=== PATIENT | male | born 1955 | race Caucasian/White ===

== ENCOUNTER → 2023-07-25 08:30 | Outpatient (REF) | payer OTHER, SELFPAY | LOC: REG 08:30 | PROVIDERS: ATTENDING PHYSICIAN Specialist; FAMILY PHYSICIAN Family Medicine | DX: E29.1 Testicular hypofunction (principal) | CPT/HCPCS: 36415; 84403 ==

== ENCOUNTER → 2023-08-13 06:47 | Outpatient (REF) | payer OTHER, SELFPAY | LOC: MRI 06:47 | PROVIDERS: ATTENDING PHYSICIAN Specialist; FAMILY PHYSICIAN Family Medicine | DX: M54.16 Radiculopathy, lumbar region (principal) | CPT/HCPCS: 72148 ==

== ENCOUNTER → 2023-10-26 16:29 | Outpatient (REF) | payer OTHER, SELFPAY | LOC: RAD 16:29 | PROVIDERS: ATTENDING PHYSICIAN Family Medicine | DX: I82.890 Acute embolism and thrombosis of other specified veins (principal) | CPT/HCPCS: 93971 ==

== ENCOUNTER → 2023-11-19 07:13 | Outpatient (REF) | payer OTHER, SELFPAY ==
[2023-11-19 08:59] LABS: Hematocrit 41.9 % (39.0-52.0)
[2023-11-19 09:32] LABS: ALT (SGPT) 27 U/L (0-50); AST (SGOT) 43 U/L (17-59); Albumin 4.3 g/dl (3.5-5.0); Blood Urea Nitrogen 18 mg/dl (9-20); Carbon Dioxide 26 mmol/L (22-30); Glucose 90 mg/dl (70-99); Potassium 4.6 mmol/L (3.5-5.1); Total Bilirubin 0.7 mg/dl (0.2-1.3); Total Protein 6.5 g/dl (6.3-8.2); eGFR > 60.00
[2023-11-19 10:19] LABS: Calcium 9.5 mg/dl (8.4-10.2); Chloride 105 mmol/L (98-107); Sodium 140 mmol/L (135-145)
[2023-11-19 11:07] LABS: Alkaline Phosphatase 75 U/L (38-126)
== END ==
LOC: REG 07:13
PROVIDERS: ATTENDING PHYSICIAN Specialist; FAMILY PHYSICIAN Family Medicine
DX: Z12.5 Encounter for screening for malignant neoplasm of prostate (principal); E29.1 Testicular hypofunction
CPT/HCPCS: 36415; 80053; 84403; 85014

== ENCOUNTER 2023-12-31 19:31 | Emergency (ER) | payer OTHER, SELFPAY ==
[2023-12-31 19:39] VITALS: BP 161/88; BMI 29.6
[2023-12-31 19:52] LABS: % Basophils 0.3 % (0-2); % Eosinophils 0.5 % (0-6); % Immature Granulocytes 0.5 % (0-0.5); % Monocytes 11.4 % (1.7-9.3); % Neutrophils 75.3 % (42.2-75.2); Absolute Eosinophils 0.1 10^3/uL (0-0.7); Absolute Immature Granulocytes 0.1 10^3/uL (0-0.05); Absolute Lymphocytes 1.2 10^3/uL (1.2-3.4); Absolute Monocytes 1.1 10^3/uL (0.1-0.6); Absolute Neutrophils 7.4 10^3/uL (1.4-6.5); Hematocrit 42.7 % (39.0-52.0); Hemoglobin 14.6 g/dL (13.0-18.0); Mean Corp Hgb Conc. 34.2 g/dL (33.0-37.0); Mean Corpuscular Hgb 33.1 pg (27.0-31.0); Mean Corpuscular Volume 96.8 fL (80.0-94.0); Mean Platelet Volume 9.7 fL (7.4-10.4); Nucleated Red Blood Cells % 0 % (-); Platelet Count 185 10^3/uL (130-400); Red Blood Cell Count 4.41 10^6/uL (4.70-6.10); Red Cell Dist. Width 13.5 % (11.5-14.5); White Blood Cell Count 9.9 10^3/uL (4.8-10.8)
[2023-12-31 20:16] LABS: ALT (SGPT) 33 U/L (0-50); AST (SGOT) 28 U/L (17-59); Albumin 3.8 g/dl (3.5-5.0); Alkaline Phosphatase 64 U/L (38-126); Blood Urea Nitrogen 12 mg/dl (9-20); Calcium 9.1 mg/dl (8.4-10.2); Carbon Dioxide 30 mmol/L (22-30); Chloride 105 mmol/L (98-107); Estimated Creatinine Clearance 91 ml/min; Glucose 100 mg/dl (70-99); Sodium 139 mmol/L (135-145); Total Bilirubin 0.9 mg/dl (0.2-1.3); Total Protein 5.9 g/dl (6.3-8.2); eGFR > 60.00
[2023-12-31 20:32] LABS: Troponin I < 0.012 ng/ml
[2023-12-31 21:13] VITALS: BMI 28.3
--- NOTE | 2023-12-31 21:18 | EDRN ---
Pt ate dinner night and developed pain in LLQ abd. Pt ate pork chops and red beets. Pt took pepto and dariusz seltzer into Tuesday and pain 'calmed down'. Last night, pt had pain upper abdomen 'like a strike' that woke him up. Pt ate
chicken noodle soup last night as well as tonight. Pain currently in LLQ of abdomen that comes and goes. Pt took dariusz seltzer today for pain and says it did not help. No n/v/d/constipation, fever/chills/cough, urinary symptoms. dizziness.
Pt adds 'My heart brings me in, it hurts and I'm short of breath.' Pt says walking 20 ft to his garden makes him take a deep breath. Pt had afib 7 years. This has been going on for past couple days. Pt has 'piercing' in L upper chest and says on
'it was really moving and went away.' This discomfort does not radiate. Pt does not know if he has had palpitations but says last time he had something like this was 7 years ago when he was in afib. Pt says Dr Juarez cardioverted him at
that time and pt started with cpap.
[2023-12-31 21:35] VITALS: BP 113/65
[2023-12-31 21:41] LABS: Lipase 176 U/L (23-300)
[2023-12-31 22:00] VITALS: BP 132/72
[2023-12-31 22:47] LABS: Urine Albumin Negative (Neg - Trace); Urine Bilirubin Negative (Negative); Urine Character Clear (Clear); Urine Color Yellow; Urine Glucose Negative (Negative); Urine Ketone Negative (Negative); Urine Leukocyte Negative (Negative); Urine Nitrite Negative (Negative); Urine Occult Blood Negative (Negative); Urine Urobilinogen Negative (Neg - 1+)
[2023-12-31 23:00] VITALS: BP 129/76
--- NOTE | 2023-12-31 23:33 | ED.GENMED ---
History of Present Illness
General
Chief Complaint: Abdominal Pain
Source: patient and previous hospital records
Exam Limitations: none
Time Seen by Provider: 12/31/23 21:58
Nursing documentation reviewed up to this point in time: agreed with
History of Present Illness
History of Present Illness:
This is a 68-year-old gentleman who has history of diverticulosis, history of PAF who complains of 2-day history of primarily left lower quadrant abdominal pain accompanied with constipation. He did take a laxative tablets night, 2 days
ago and then again last night and passed hard stool yesterday and again hard stool today. Despite moving his bowels he continues with some left lower quadrant abdominal pain, persistent over the past 2 days. He has been limiting his diet to clear
liquids, soups over the past 2 days. He has not noticed a fever but does admit to mild generalized aches. He has had no nausea nor vomiting. He has history of chronic mild urinary frequency that is stable and unchanged. No dysuria nor urgency
nor hematuria.
He is also concern for potential atrial fibrillation as he has noticed some brief palpitations over the past week or 2 as well as some intermittent chest pain that seems worse with deep breath along with mild dyspnea on exertion, ongoing over the
past few weeks. He states the symptoms seem similar to his symptoms with prior episode of atrial fibrillation. He denies dizziness nor lightheadedness, no leg pain or swelling. No recent travel.
He follows with Dr. Juarez. He admits that he has not attempted to call his snuff drier.
Past History
Past History
ED Past Medical History: Arrthythmia (Paroxysmal atrial fibrillation), Hypercholesterolemia and Other (Gallstones, diverticulosis, umbilical hernia)
ED Past Surgical History: Orthopedic
Social History
Tobacco: Non-smoker
Alcohol: None
Drug: None
Personal:
Living: with family
Employment: Retired
Family History
Family History: Diabetes
Phy Exam
Physical Exam
Physical Exam:
GENERAL: 68-year-old gentleman appears his stated age, awake and alert, pleasant, appears in no acute distress.
EYE: anicteric
NECK: Supple, nontender, no meningismus, no significant adenopathy.
ENT: oral mucosa is moist. No rhinorrhea.
CARDIAC: Regular rate and rhythm. no murmur.
LUNGS: Clear breath sounds bilaterally, no acute respiratory distress, no wheezes/rales/rhonchi
ABDOMEN: Rotund, soft, nondistended, mild tenderness left lower quadrant and suprapubic without rebound or guarding or rigidity. No palpable masses. no cvat. normoactive BS.
NEUROLOGICAL: Alert and oriented x3, no focal neuro deficits. Gait is [place]ano and steady.
SKIN: Warm and dry, normal color, skin intact. No rash.
MUSCULOSKELETAL: No C/C/E. peripheral pulses are full and equal b/l. No palpable tenderness.
PSYCH: Normal and appropriate interaction.
Course
Orders/Labs/Results
Orders:
Orders
12/31/23 19:41
Electrocardiogram (*1) Urgent
Reason for Study: Chest Pain
EKG- Treatment ONCE
12/31/23 19:47
Complete Blood Count/With Diff Urgent
Comprehensive Metabolic Panel Urgent
Lipase Urgent
Comment: ADDON
NT-proBNP Urgent
Comment: ADD ON
Troponin I Urgent
12/31/23 21:11
Add On- LAB Urgent
Tests Added?: lipase
12/31/23 22:28
Add On- LAB Urgent
Tests Added?: BNP
12/31/23 22:37
Urinalysis Reflex To Culture Urgent
Date Specimen was Collected: 12/31/23
Time Specimen was Collected: 22:33
01/01/24 00:02
CT Abd/pelvis W Iv Cont Urgent
Reason For Exam: 2 day hx LLQ abd pain-constant
01/01/24 01:21
Ketorolac [Toradol] 15 mg IV NOW STA
Abnormal Lab Results
12/31/23
19:47
RBC 4.41 L 10^6/uL
(4.70-6.10)
MCV 96.8 H fL
(80.0-94.0)
MCH 33.1 H pg
(27.0-31.0)
Abs Immat Gran (auto) 0.1 H 10^3/uL
(0-0.05)
Absolute Neuts (auto) 7.4 H 10^3/uL
(1.4-6.5)
Absolute Monos (auto) 1.1 H 10^3/uL
(0.1-0.6)
Neutrophils % 75.3 H %
(42.2-75.2)
Lymphocytes % 12.0 L %
(20.5-51.1)
Monocytes % 11.4 H %
(1.7-9.3)
Glucose 100 H mg/dl
(70-99)
Total Protein 5.9 L g/dl
(6.3-8.2)
12/31/23 19:47
12/31/23 19:47
Vital Signs
Initial and Last Documented VS:
Initial Vital Signs
Temp Pulse Resp BP Pulse Ox
98.5 F 92 16 161/88 99
12/31/23 19:39 12/31/23 19:39 12/31/23 19:39 12/31/23 19:39 12/31/23 19:39
Last Documented Vital Signs
Temp Pulse Resp BP Pulse Ox
98.5 F 80 18 132/72 93
12/31/23 19:39 01/01/24 00:00 01/01/24 00:00 01/01/24 00:00 01/01/24 00:00
MDM/Problems Addressed
Differential Diagnosis Includes:
Patient presents with 2-day history of left lower quadrant pain. Known history of diverticulosis. Concern for diverticulitis, other consideration is constipation, UTI, colitis.
Patient concern for possible atrial fibrillation with ongoing fatigue complaints of chest discomfort, mild dyspnea on exertion, 1 episode of brief palpitations but denies sustained palpitations or sustained symptoms.
He has no prior history of CHF/cardiomyopathy, no history of CAD. Echocardiogram July 2022 showing EF of 55%, mild to moderate mitral regurgitation. Unremarkable stress echo 2018.
EKG shows normal sinus rhythm, no acute ST-T wave abnormalities. Monitor shows similar normal sinus rhythm.
Labs are reassuring with normal white blood cell count.
Troponin is negative.
Will check urinalysis, BNP and plan for CT abdomen pelvis with IV contrast.
Chronic conditions affecting care: HTN, Arrhythmia and Other (Diverticulosis)
*Radiology
Radiology exam reviewed: radiology read reviewed
*Pulse Oximetry
Patient hypoxic: no
*EKG
Interpreted by ED Provider?: Yes
Interpretation: normal
Comparison EKG: no changes (Unchanged from previous July 2022)
Rate: normal
Rhythm: sinus
[place]: normal axis
Interval: normal interval
QRS Pattern: normal QRS
Ischemia: no ischemia
*Parts Cataloguer Interpretation
Rate: normal
Interpretation: normal
Rhythm: sinus
*Critical Care Note
Total Time (30-74mins, 75-104mins- exclusive of procedures): Not Applicable
Update Note
Update Note:
01/01/2024 0125 AM
CAT scan shows several nonspecific findings. Concern for mild stranding along the pancreatic tail concerning for mild pancreatitis however lipase is normal. Patient has no upper abdominal pain. There is incidental gallstones without evidence of
cholecystitis. Diverticulosis without diverticulitis. No evidence of colitis nor obstruction. No hydronephrosis or obstructing stone.
Patient remains in normal sinus rhythm.
Troponin is negative. BNP is normal.
As he has been passing hard stools the past 2 days after taking a laxative I suspect his left lower quadrant pain is an element of constipation in nature.
Recommend he initiate daily MiraLAX as well as fiber supplement.
Prompt follow-up with PCP versus his restorative aide, Dr. Burton.
Nonspecific chest discomfort ongoing for several weeks with unremarkable EKG, troponin. Recommend he follow-up with his snuff drier, Dr. Juarez.
ED Attending Note
-
Portions of this chart may have been created with voice recognition software.� Occasional wrong word or��sound alike� substitutions may have occurred due to the inherent limitations of voice recognition software.
Discharge Plan
Departure
Patient Disposition: Home (Routine Discharge)
Date of Disposition: 01/01/24
Time of Disposition: 01:23
Patient with high blood pressure during this ER visit?: No
Condition: Good
Discharge Problem:
Abdominal pain, acute, left lower quadrant, Acute constipation, Nonspecific chest pain
Instructions: Constipation, Adult (DC), Chest Pain DCA Follow Up
Prescriptions:
No Action
zolpidem 10 MG tablet
10 mg PO HSPRN PRN (Reason: sleep)
metoprolol succinate 25 MG tablet extended release 24 hr
25 mg PO HS
testosterone [AndroGel] 1.25 GM gel in packet
1.62 gm TD DAILY
rosuvastatin 10 mg Tablet
10 mg PO DAILY
aspirin 81 mg Capsule
81 mg PO DAILY
[place] 3
2 gummy PO DAILY
Referrals:
Francisco Powers MD [Family Provider] - Call in 1-3 days for appt
Interventions
Interventions:
*Risk Screen - Suicide Last Done: 12/31/23 19:39
*General Assessment Last Done: 12/31/23 21:13
*Neglect/Abuse Screening Last Done: 12/31/23 19:39
ED- Fall Risk Assessment Last Done: 12/31/23 21:31
*ED COVID-19 Vaccine History Last Done: 12/31/23 21:13
YV-Mgbehf-Fazxmuvkdk Assessment Last Done: 12/31/23 21:31
Discharge Date and Time
Print Language: SLOVAK
[2023-12-31 23:51] LABS: NT-proBNP 198 pg/ml
[2024-01-01] VITALS: BP 132/72
[2024-01-01 01:35] VITALS: BP 121/92
[2024-01-01] MEDS: TORADOL 15 MG IV (01:35)
== END 2024-01-01 01:43 | disposition home or self-care (01) ==
LOC: EMR 19:31
PROVIDERS: Student in an Organized Health Care Education/Training Program; EMERGENCY PHYSICIAN Emergency Medicine; FAMILY PHYSICIAN Family Medicine
DX: R10.32 Left lower quadrant pain (principal); K59.09 Other constipation; R07.89 Other chest pain; I48.0 Paroxysmal atrial fibrillation
CPT/HCPCS: 99285; 96374; 74177; 80053; 81003; 83690; 83880; 84484; 85025; 93005; Q9967

== ENCOUNTER → 2024-01-23 07:15 | Outpatient (REF) | payer OTHER, SELFPAY | LOC: RCS 07:15 | PROVIDERS: ATTENDING PHYSICIAN Internal Medicine Cardiovascular Disease; FAMILY PHYSICIAN Family Medicine | DX: R06.02 Shortness of breath (principal) | CPT/HCPCS: 93306 ==

== ENCOUNTER → 2024-01-25 08:13 | Outpatient (REF) | payer OTHER, SELFPAY | LOC: DHCBC/DCA 08:13 | PROVIDERS: ATTENDING PHYSICIAN Internal Medicine Cardiovascular Disease; FAMILY PHYSICIAN Family Medicine | DX: R07.89 Other chest pain (principal); R06.02 Shortness of breath | CPT/HCPCS: 78452; 93017; A9500 ==

== ENCOUNTER → 2024-02-21 07:45 | Outpatient (REF) | payer OTHER, SELFPAY ==
[2024-02-21 10:05] LABS: Hematocrit 44.7 % (39.0-52.0)
[2024-02-21 10:26] LABS: ALT (SGPT) 32 U/L (0-50); AST (SGOT) 39 U/L (17-59); Albumin 4.5 g/dl (3.5-5.0); Alkaline Phosphatase 71 U/L (38-126); Blood Urea Nitrogen 12 mg/dl (9-20); Calcium 9.6 mg/dl (8.4-10.2); Carbon Dioxide 30 mmol/L (22-30); Chloride 104 mmol/L (98-107); Glucose 91 mg/dl (70-99); Potassium 4.6 mmol/L (3.5-5.1); Sodium 142 mmol/L (135-145); Total Bilirubin 0.8 mg/dl (0.2-1.3); Total Protein 6.6 g/dl (6.3-8.2); eGFR > 60.00
== END ==
LOC: REG 07:45
PROVIDERS: ATTENDING PHYSICIAN Specialist; FAMILY PHYSICIAN Family Medicine
DX: Z12.5 Encounter for screening for malignant neoplasm of prostate (principal)
CPT/HCPCS: 36415; 80053; 84403; 85014

== ENCOUNTER → 2024-04-23 07:50 | Outpatient (REF) | payer OTHER, SELFPAY ==
[2024-04-23 10:02] LABS: Hematocrit 46.5 % (39.0-52.0)
[2024-04-23 10:52] LABS: ALT (SGPT) 35 U/L (0-50); AST (SGOT) 36 U/L (17-59); Albumin 4.5 g/dl (3.5-5.0); Alkaline Phosphatase 55 U/L (38-126); Blood Urea Nitrogen 15 mg/dl (9-20); Calcium 9.5 mg/dl (8.4-10.2); Carbon Dioxide 29 mmol/L (22-30); Chloride 104 mmol/L (98-107); Glucose 86 mg/dl (70-99); HDL Cholesterol 61 mg/dl; LDL Cholesterol, Calculated 106 mg/dl; Potassium 4.8 mmol/L (3.5-5.1); Sodium 143 mmol/L (135-145); Total Bilirubin 0.7 mg/dl (0.2-1.3); Total Cholesterol 195 mg/dl (50-199); Total Protein 6.7 g/dl (6.3-8.2); Triglyceride 143 mg/dl (10-149); Very Low Density Lipoprotein 28 mg/dl (0-30); eGFR > 60.00
[2024-04-23 11:01] LABS: IgA 97 mg/dl (70-400)
[2024-04-24 19:21] LABS: % Free Testosterone 1.5 % (1.6-2.9); Free Testosterone 12 pg/mL (47-244); Sex Hormone Binding Globulin 40 nmol/L (19-76); Total Testosterone 78 ng/dL (300-720)
[2024-04-25 15:10] LABS: tTG IgA Antibody 3.5 EU/ml (0-19); tTG IgG Antibody 11.6 EU/ml (0-19)
[2024-04-25 16:56] LABS: Endomysial IgA Antibody Titer <1:10 (<1:10)
== END ==
LOC: REG 07:50
PROVIDERS: ATTENDING PHYSICIAN Internal Medicine Cardiovascular Disease; FAMILY PHYSICIAN Family Medicine; OTHER PHYSICIAN Internal Medicine; REFERRING PHYSICIAN Specialist
DX: E78.00 Pure hypercholesterolemia, unspecified (principal); Z12.5 Encounter for screening for malignant neoplasm of prostate; E29.1 Testicular hypofunction; R19.5 Other fecal abnormalities; Z86.0101 Personal history of adenomatous and serrated colon polyps
CPT/HCPCS: 36415; 80053; 80061; 82784; 83516; 84270; 84402; 84403; 85014; 86231

== ENCOUNTER → 2024-04-24 08:37 | Outpatient (REF) | payer OTHER, SELFPAY | LOC: REG 08:37 | PROVIDERS: ATTENDING PHYSICIAN Internal Medicine; FAMILY PHYSICIAN Family Medicine | DX: R19.5 Other fecal abnormalities (principal) | CPT/HCPCS: 83993 ==

== ENCOUNTER → 2024-05-10 14:20 | Outpatient (REF) | payer OTHER, SELFPAY | LOC: PAVMRI 14:20 | PROVIDERS: ATTENDING PHYSICIAN Internal Medicine; FAMILY PHYSICIAN Family Medicine | DX: Q45.3 Other congenital malformations of pancreas and pancreatic duct (principal); Z87.19 Personal history of other diseases of the digestive system | CPT/HCPCS: 74183; A9575 ==

== ENCOUNTER 2024-05-21 06:23 | Day surgery (SDC) | payer OTHER, SELFPAY ==
[2024-04-23 08:40] VITALS: BMI 29.0
[2024-04-23 08:58] LABS: Hematocrit 46.7 % (39.0-52.0); Hemoglobin 15.6 g/dL (13.0-18.0); Mean Corp Hgb Conc. 33.4 g/dL (33.0-37.0); Mean Corpuscular Hgb 32.7 pg (27.0-31.0); Mean Corpuscular Volume 97.9 fL (80.0-94.0); Mean Platelet Volume 9.5 fL (7.4-10.4); Platelet Count 197 10^3/uL (130-400); Red Blood Cell Count 4.77 10^6/uL (4.70-6.10); Red Cell Dist. Width 13.6 % (11.5-14.5)
[2024-04-23 09:27] LABS: ALT (SGPT) 34 U/L (0-50); AST (SGOT) 35 U/L (17-59); Albumin 4.4 g/dl (3.5-5.0); Alkaline Phosphatase 55 U/L (38-126); Blood Urea Nitrogen 15 mg/dl (9-20); Calcium 9.6 mg/dl (8.4-10.2); Carbon Dioxide 30 mmol/L (22-30); Chloride 102 mmol/L (98-107); Estimated Creatinine Clearance 81 ml/min; Glucose 85 mg/dl (70-99); Potassium 4.5 mmol/L (3.5-5.1); Sodium 142 mmol/L (135-145); Total Bilirubin 0.7 mg/dl (0.2-1.3); Total Protein 6.4 g/dl (6.3-8.2); eGFR > 60.00
[2024-04-23 09:31] LABS: Glycohemoglobin (HgbA1c) 5.4 % (4.0-5.6)
--- NOTE | 2024-05-15 12:05 | VNURNOTE ---
Chart reviewed. per Pre-op note Jameson F- patient to stay overnight and start outpt PT Weds or Tue of surgical week. No [facility] referral placed.
[2024-05-16 08:58] VITALS: BMI 29.0
[2024-05-21] VITALS (11 sets, daily range): BP systolic 104–161; BP diastolic 65–85; PULSE 65; O2SAT 95; BMI 29.0
[2024-05-21] MEDS: CELEBREX 200 MG PO (08:06)
[2024-05-21] MEDS: TYLENOL 650 MG PO ×4 (08:06→21:00)
--- NOTE | 2024-05-21 11:27 | W.DS.TRANS ---
DC Summary - Internal Controls Analyst
-
Discharge Instructions:
Discharge Diagnosis/Procedures R TKA Dr. Cary 05/21/24
Diet As tolerated
Activity With Walker
Driving Restrictions No driving
Bathing Restrictions OK to Shower
Instructions:
Stand-Alone Forms: SDS Total Hip and Knee D/C
Changes to Home Medications: Yes
Discharge Medications:
DC Medications w/original date entered in [employer]
zolpidem 10 mg tablet 10 mg PO HSPRN PRN sleep 05/02/17
metoprolol succinate 25 mg tablet,extended release 24 hr 25 mg PO HS 05/02/18
testosterone 1.62 % (20.25 mg/1.25 gram) transdermal gel packet (AndroGel) 1.62 gm TD DAILY 05/02/18
rosuvastatin 10 mg tablet 10 mg PO DAILY 12/31/22
[place] 3 2 gummy PO DAILY 12/31/23
mupirocin 2 % topical ointment 1 applic topical BID 05/16/24
acetaminophen 325 mg tablet (Tylenol) 650 mg (2 x 325 mg) PO QID #1 tab 05/21/24
aspirin 325 mg tablet 325 mg PO DAILY blood clot prevention #1 tab 05/21/24
celecoxib 100 mg capsule 100 mg PO BID Anti-inflammatory #14 caps 05/21/24
dexamethasone 4 mg tablet 4 mg PO BID inflammation #6 tabs 05/21/24
docusate sodium 100 mg capsule (Colace) 100 mg PO BID stool softner #1 cap 05/21/24
magnesium hydroxide 400 mg/5 mL oral suspension (Milk of Magnesia) 30 ml PO HS PRN Constipation #1 mL 05/21/24
ondansetron 4 mg disintegrating tablet 4 mg PO Q6H PRN n/v #20 tabs 05/21/24
oxycodone 5 mg tablet 5 mg PO Q6H PRN 1 tab moderate pain, 2 tabs severe pain #30 tabs 05/21/24
sennosides 8.6 mg tablet (Senokot) 17.2 mg (2 x 8.6 mg) PO BID laxative #2 tabs 05/21/24
Home Medication Changes
aspirin 325 mg tablet 325 mg PO DAILY blood clot prevention #1 tab 05/21/24
celecoxib 100 mg capsule 100 mg PO BID Anti-inflammatory #14 caps 05/21/24
dexamethasone 4 mg tablet 4 mg PO BID inflammation #6 tabs 05/21/24
docusate sodium 100 mg capsule (Colace) 100 mg PO BID stool softner #1 cap 05/21/24
magnesium hydroxide 400 mg/5 mL oral suspension (Milk of Magnesia) 30 ml PO HS PRN Constipation #1 mL 05/21/24
ondansetron 4 mg disintegrating tablet 4 mg PO Q6H PRN n/v #20 tabs 05/21/24
oxycodone 5 mg tablet 5 mg PO Q6H PRN 1 tab moderate pain, 2 tabs severe pain #30 tabs 05/21/24
sennosides 8.6 mg tablet (Senokot) 17.2 mg (2 x 8.6 mg) PO BID laxative #2 tabs 05/21/24
Pending Results: No
--- NOTE | 2024-05-21 11:37 | W.PN.UPDATE ---
Update Note
Progress Note Update
R JUAN DANIEL Cary 05/21/24
PAF-maintained on Metoprolol w/ no oral anticoagulation--tele
HFpEF--decrease IVF rate
MARGE-Cpap
BPH-add scheduled Flomax and prn if indicated
[2024-05-21] MEDS: ROXICODONE 5 MG PO (11:45)
[2024-05-21] MEDS: FLOMAX 0.4 MG PO (11:45)
[2024-05-21] MEDS: NORMOSOL-R/PLASMALYTE-A 1000 IV (12:15)
--- NOTE | 2024-05-21 12:15 | PTCARENOTE ---
Received patient from PACU at 1215. Patient AAOx3, no c/o pain, call leonard in reach. Spouse at bedside.
[2024-05-21] MEDS: CRESTOR 10 MG PO (13:19)
[2024-05-21] MEDS: ULTRAM 50 MG PO ×3 (13:19→21:05)
--- NOTE | 2024-05-21 15:33 | PTCARENOTE ---
Patient ambulating to bathroom with walker and supervision. Patient voided multiple times in bathroom without difficulty. Patient has no c/o pain. Tolerating regular diet, spouse at bedside.Ice to right knee, call leonard in reach.
[2024-05-21] MEDS: ASPIRIN 325 MG PO (17:44)
[2024-05-21] MEDS: ANCEF 5 IV (17:45)
[2024-05-21] MEDS: BACTROBAN 2% OINTMENT 1 APPLIC NASAL (20:40)
[2024-05-21] MEDS: DECADRON 6 MG IV (21:00)
[2024-05-21] MEDS: TORADOL 15 MG IV (21:00)
[2024-05-21] MEDS: SENOKOT 17.2 MG PO (21:00)
[2024-05-21] MEDS: COLACE 100 MG PO (21:05)
[2024-05-21] MEDS: TOPROL XL 25 MG PO (21:05)
[2024-05-21] MEDS: NEURONTIN 300 MG PO (21:05)
[2024-05-22] MEDS: TYLENOL 650 MG PO ×3 (00:59→12:30)
[2024-05-22] MEDS: ANCEF 5 IV (01:00)
[2024-05-22 03:34] VITALS: BP 128/84
[2024-05-22] MEDS: TYLENOL PO (05:00)
[2024-05-22 08:07] VITALS: BP 138/80
[2024-05-22] MEDS: SENOKOT 17.2 MG PO (08:25)
[2024-05-22] MEDS: CELEBREX 200 MG PO (08:25)
[2024-05-22] MEDS: CRESTOR 10 MG PO (08:25)
[2024-05-22] MEDS: ASPIRIN 325 MG PO (08:25)
[2024-05-22] MEDS: ULTRAM 50 MG PO ×2 (08:25→12:30)
[2024-05-22] MEDS: TORADOL 15 MG IV (08:26)
[2024-05-22] MEDS: DECADRON 6 MG IV (08:26)
[2024-05-22] MEDS: BACTROBAN 2% OINTMENT 1 APPLIC NASAL (08:26)
[2024-05-22] MEDS: COLACE 100 MG PO (08:26)
--- NOTE | 2024-05-22 09:17 | W.PN.ORTHO ---
Today's Communication / Plan
-
d/c
Assessment
.
Distal Motor Intact: Yes
Dressing:
Clean, dry and intact.
Assessment:
PAF-maintained on Metoprolol w/ no oral anticoagulation--stable on tele
HFpEF--decrease IVF rate
MARGE-Cpap-O2 sats stable
BPH-add scheduled Flomax and prn if indicated-voiding well
Plan
.
Surgery / Date: R JUAN DANIEL Cary 05/21/24
DVT Prophylaxis: Aspirin
Activity:
Out of bed.
PT/OT
Discharge Plan: Home w/ Outpatient PT
Subjective
.
.:
Patient resting comfortably.
Vital Signs and Labs
.
Vital Signs and Labs:
Lab Results
04/23/24 07:27
04/23/24 07:27
Temp Pulse Resp BP Pulse Ox
97.8 F 80 17 138/80 95
05/22/24 08:07 05/22/24 08:07 05/22/24 08:07 05/22/24 08:07 05/22/24 08:07
Non-invasive Hgb result: 14.8
Physical Exam
-
HEENT: No pallor, cyanosis, or jaundice. Throat clear.
NECK: Supple. No JVD.
RESPIRATORY: Lungs clear to auscultation.
CVS: S1, S2 normal. RRR.� No murmur, rub or gallop.
ABDOMEN: Soft, non-tender. No distension. BS+/normal.
EXTREMITIES: strength equal, no calf pain with palpation
AUCTIONEER TOBACCO: AOx3. No focal deficits. administrative officer grossly intact
[2024-05-22 09:20] VITALS: BP 130/76; PULSE 82
--- NOTE | 2024-05-22 10:31 | CM ---
Met with pt at bedside
Pt reports he lives with his in a 2 story home; 2 steps to enter, FF set-up
Independent, retired, active, drives
DME - CPAP, rolling walker, single point cane, raised toilet seat, toilet rails, shower chair
SNF - denies past hx
HH - [facility] in past
Has ride home at discharge
PCP - Bernard Lozoya
Pharm - [facility]
Plan is for outpatient PT. Has appointment at [facility]. Has Rx. to transport
Plan - home with outpatient PT
[2024-05-22 11:00] VITALS: BP 130/73
[2024-05-22 11:01] VITALS: PULSE 77; O2SAT 99
[2024-05-22] MEDS: PREVNAR 20 0.5 ML IM (12:18)
== END 2024-05-22 13:54 | disposition home or self-care (01) ==
LOC: SDS 06:23
PROVIDERS: ATTENDING PHYSICIAN Specialist; FAMILY PHYSICIAN Family Medicine; REFERRING PHYSICIAN Internal Medicine Cardiovascular Disease
DX: M17.11 Unilateral primary osteoarthritis, right knee (principal); E66.9 Obesity, unspecified; Z68.30 Body mass index [BMI] 30.0-30.9, adult; Z96.653 Presence of artificial knee joint, bilateral
CPT/HCPCS: 27447; 36415; 73560; 80053; 83036; 85027; 87070; 97116; 97161; 97166; C1713; C1776

== ENCOUNTER → 2024-07-17 10:42 | Outpatient (REF) | payer OTHER, SELFPAY ==
[2024-07-19 15:50] LABS: Calprotectin, Fecal 146 ug/g (<=49)
== END ==
LOC: REG 10:42
PROVIDERS: ATTENDING PHYSICIAN Physician Assistant; FAMILY PHYSICIAN Family Medicine
DX: R19.5 Other fecal abnormalities (principal)
CPT/HCPCS: 83993

== ENCOUNTER 2024-08-02 16:00 | Emergency (ER) | payer OTHER, SELFPAY ==
[2024-08-02 16:09] VITALS: BP 137/62
[2024-08-02 16:28] LABS: % Basophils 0.3 % (0-2); % Eosinophils 1.5 % (0-6); % Immature Granulocytes 0.2 % (0-0.5); % Lymphocytes 22.9 % (20.5-51.1); % Monocytes 8.5 % (1.7-9.3); % Neutrophils 66.6 % (42.2-75.2); Absolute Eosinophils 0.1 10^3/uL (0-0.7); Absolute Lymphocytes 1.3 10^3/uL (1.2-3.4); Absolute Monocytes 0.5 10^3/uL (0.1-0.6); Absolute Neutrophils 3.9 10^3/uL (1.4-6.5); Hematocrit 44.9 % (39.0-52.0); Hemoglobin 14.7 g/dL (13.0-18.0); Mean Corp Hgb Conc. 32.7 g/dL (33.0-37.0); Mean Corpuscular Hgb 31.7 pg (27.0-31.0); Mean Platelet Volume 9.9 fL (7.4-10.4); Nucleated Red Blood Cells % 0 % (-); Platelet Count 227 10^3/uL (130-400); Red Blood Cell Count 4.63 10^6/uL (4.70-6.10); Red Cell Dist. Width 12.4 % (11.5-14.5); White Blood Cell Count 5.9 10^3/uL (4.8-10.8)
[2024-08-02 16:39] LABS: INR 1.02; PT 13.9 Sec (11.4-14.6)
[2024-08-02 16:40] LABS: APTT 26.4 Sec (23.4-35.0)
[2024-08-02 16:51] LABS: ALT (SGPT) 37 U/L (0-50); AST (SGOT) 78 U/L (17-59); Albumin 4.5 g/dl (3.5-5.0); Alkaline Phosphatase 65 U/L (38-126); Blood Urea Nitrogen 15 mg/dl (9-20); Calcium 9.5 mg/dl (8.4-10.2); Carbon Dioxide 28 mmol/L (22-30); Chloride 101 mmol/L (98-107); Glucose 130 mg/dl (70-99); Potassium 4.3 mmol/L (3.5-5.1); Sodium 136 mmol/L (135-145); Total Bilirubin 0.7 mg/dl (0.2-1.3); Total Protein 6.5 g/dl (6.3-8.2); eGFR > 60.00
[2024-08-02 16:55] LABS: Troponin I < 0.012 ng/ml
[2024-08-02 17:07] VITALS: BP 135/74
--- NOTE | 2024-08-02 17:24 | ED.GENMED ---
History of Present Illness
General
Chief Complaint: Chest Pain
Source: patient
Exam Limitations: none
Time Seen by Provider: 08/02/24 17:09
Nursing documentation reviewed up to this point in time: agreed with
History of Present Illness
History of Present Illness:
68-year-old male, hypertension hyperlipidemia about 2 hours ago after eating some cantaloupe and nuts developed sharp upper abdominal pain no mild nausea, did not radiate to the jaw or arm, similar episode few years ago after eating hot peppers,
does not drink or smoke no history of CAD, he took 2 Tums called 911 by the time paramedics got there is feeling better,
Past History
Past History
ED Past Medical History: Arrthythmia (Paroxysmal atrial fibrillation), GERD, Hypercholesterolemia and Other (Gallstones, diverticulosis, umbilical hernia)
ED Past Surgical History: Orthopedic
Social History
Tobacco: Non-smoker
Alcohol: None
Drug: None
Personal:
Living: with family
Employment: Retired
Family History
Family History: Diabetes
Review of Systems
Review of Systems
All Other Systems: Not applicable
Constitutional: Denies fever
EENT: Reports no symptoms
Respiratory: Reports no symptoms; Denies cough
Cardiac: Reports chest pain
ABD/GI: Reports abdominal pain and nausea
: Reports no symptoms
Musculoskeletal: Reports no symptoms
Skin: Reports no symptoms
Endocrine: Reports no symptoms
Hematologic/Lymphatic: Reports no symptoms
Psychiatric: Reports no symptoms
Phy Exam
Physical Exam
Physical Exam:
Physical Exam
General: no apparent distress, not acutely ill
Neck: No jaundice
Heart: s1/s2 regular rate and rhythm, no murmur. equal radial pulses.
Lungs: no acute respiratory distress. clear bilaterally
Abdomen: not tender.
Neuro: alert and oriented. no focal neurological deficits
Skin: no rash
Psychiatric: well kept. interactive and cooperative
Extremities: no edema. no calf tenderness.
Scores
Heart Score for Chest Pain Patients
STEMI patient?: No
History: Slightly or Non-Suspicious
ECG: Normal
Age: >/= 65 years
Risk Factors: 1 or 2 Risk Factors
Troponin: </= Normal Limit
Heart Score for Chest Pain Patients: 3
Heart Score Risk: 2.5% MACE over next 6 weeks
Course
Orders/Labs/Results
Orders:
Orders
08/02/24 16:02
Electrocardiogram (*1) Urgent
Reason for Study: Chest Pain
EKG- Treatment ONCE
08/02/24 16:17
Complete Blood Count/With Diff Urgent
Comprehensive Metabolic Panel Urgent
Lipase Urgent
PT/INR [Prothrombin Time] Urgent
PTT Urgent
Troponin I Urgent
08/02/24 17:23
Pantoprazole [Protonix IV] 40 mg IV NOW STA
08/02/24 17:24
Add On- LAB Urgent
Tests Added?: lipase
08/02/24 17:44
Troponin I Urgent
Abnormal Lab Results
08/02/24
16:17
RBC 4.63 L 10^6/uL
(4.70-6.10)
MCV 97.0 H fL
(80.0-94.0)
MCH 31.7 H pg
(27.0-31.0)
MCHC 32.7 L g/dL
(33.0-37.0)
Glucose 130 H mg/dl
(70-99)
AST 78 H U/L
(17-59)
08/02/24 16:17
08/02/24 16:17
Vital Signs
Initial and Last Documented VS:
Initial Vital Signs
Temp Pulse Resp BP Pulse Ox
97.7 F 72 20 137/62 97
08/02/24 16:09 08/02/24 16:09 08/02/24 16:09 08/02/24 16:09 08/02/24 16:09
Last Documented Vital Signs
Temp Pulse Resp BP Pulse Ox
97.7 F 63 19 135/74 97
08/02/24 16:09 08/02/24 17:45 08/02/24 17:45 08/02/24 17:07 08/02/24 17:45
MDM/Problems Addressed
Differential Diagnosis Includes:
Reflux pancreatitis biliary colic ACS, Doubt dissection or PE
MDM/Problems Addressed:
Abdominal chest pain
Chronic conditions affecting care: HTN
Acute Exacerbation and/or Progression of Chronic Illness: HTN
*Pulse Oximetry
Patient hypoxic: no
*EKG
Interpreted by ED Provider?: Yes
Interpretation: normal
Comparison EKG: no comparison EKG present
Heart Rate: 78
Rate: normal
Rhythm: sinus
Ischemia: non-specific ST changes
*Machine Crater Interpretation
Rate: normal
Interpretation: normal
Heart Rate: 78
Rhythm: sinus
*Critical Care Note
Total Time (30-74mins, 75-104mins- exclusive of procedures): Not Applicable
Update Note
Update Note:
Update patient feeling well, troponin undetectable x 2 has seen cardiology previously has had stress test, also scheduled to see GI for colonoscopy encouraged him to talk to his GI about possibility of an upper endoscopy as well we will start him on
a PPI also notify chest pain hotline
ED Attending Note
-
Portions of this chart may have been created with voice recognition software.� Occasional wrong word or��sound alike� substitutions may have occurred due to the inherent limitations of voice recognition software.
Discharge Plan
Departure
Patient Disposition: Home (Routine Discharge)
Date of Disposition: 08/02/24
Time of Disposition: 19:03
Patient with high blood pressure during this ER visit?: No
Condition: Good
Discharge Problem:
Chest pain
Instructions: Acid Reflux and GERD in Adults (DC), Chest Pain DCA Follow Up
Prescriptions:
New
pantoprazole [Protonix] 40 mg tablet,delayed release (DR/EC)
40 mg PO DAILY Qty: 30 2RF
No Action
zolpidem 10 MG tablet
10 mg PO HSPRN PRN (Reason: sleep)
metoprolol succinate 25 MG tablet extended release 24 hr
25 mg PO HS
testosterone [AndroGel] 1.25 GM gel in packet
1.62 gm TD DAILY
rosuvastatin 10 mg Tablet
10 mg PO DAILY
[place] 3
2 gummy PO DAILY
mupirocin 2 % Ointment
1 applic TOPICAL BID
sennosides [Senokot] 8.6 mg tablet
17.2 mg PO BID Qty: 2 0RF
acetaminophen [Tylenol] 325 mg tablet
650 mg PO QID Qty: 1 0RF
Rx Instructions:
SCHEDULED DOSING
aspirin 325 mg tablet
325 mg PO DAILY Qty: 1 0RF
Rx Instructions:
Take with food
magnesium hydroxide [Milk of Magnesia] 400 mg/5 mL suspension
30 ml PO HS PRN (Reason: Constipation) Qty: 1 0RF
dexamethasone 4 mg tablet
4 mg PO BID Qty: 6 0RF
Rx Instructions:
take with food
post-op use only
docusate sodium [Colace] 100 mg capsule
100 mg PO BID Qty: 1 0RF
celecoxib 100 mg capsule
100 mg PO BID Qty: 14 0RF
Rx Instructions:
take with food
ondansetron [ondansetron] 4 mg tablet,disintegrating
4 mg PO Q6H PRN (Reason: n/v) Qty: 20 0RF
Rx Instructions:
take 1/2h b/f pain med if recurrent nausea
allow to dissolve in mouth w/o water
oxycodone 5 mg tablet
5 mg PO Q6H PRN (Reason: 1 tab moderate pain, 2 tabs severe pain) Qty: 30 0RF
Rx Instructions:
Ongoing therapy
Referrals:
Brian Ashraf MD [Family Provider] -
Lara Burton DO [Active] - Next open appointment
Mariano Juarez MD [Active] - Next open appointment
Activity Restrictions/Additional Instructions:
Start Protonix 1 pill a day,
Interventions
Interventions:
*Risk Screen - Suicide Last Done: 08/02/24 16:09
*General Assessment Last Done: 08/02/24 17:39
*Neglect/Abuse Screening Last Done: 08/02/24 17:39
ED- Fall Risk Assessment Last Done: 08/02/24 17:48
*ED COVID-19 Vaccine History Last Done: 08/02/24 17:39
ED- Cardiac Assessment Last Done: 08/02/24 17:48
Discharge Date and Time
Print Language: CHINESE
[2024-08-02 17:38] VITALS: BMI 29.6
[2024-08-02] MEDS: PROTONIX IV 40 MG IV (17:45)
[2024-08-02 18:00] VITALS: BP 132/79
[2024-08-02 18:00] LABS: Lipase 118 U/L (23-300)
[2024-08-02 18:27] LABS: Troponin I < 0.012 ng/ml
[2024-08-02 19:00] VITALS: BP 123/72
== END 2024-08-02 19:29 | disposition home or self-care (01) ==
LOC: EMR 16:00
PROVIDERS: EMERGENCY PHYSICIAN Emergency Medicine; FAMILY PHYSICIAN Family Medicine
DX: R07.9 Chest pain, unspecified (principal); I10 Essential (primary) hypertension; E78.00 Pure hypercholesterolemia, unspecified
CPT/HCPCS: 99284; 96374; 80053; 83690; 84484; 85025; 85610; 85730; 93005

== ENCOUNTER → 2024-08-23 06:44 | Outpatient (REF) | payer OTHER, SELFPAY ==
[2024-08-23 07:43] LABS: Hematocrit 47.7 % (39.0-52.0)
[2024-08-23 08:18] LABS: ALT (SGPT) 24 U/L (0-50); AST (SGOT) 24 U/L (17-59); Albumin 4.5 g/dl (3.5-5.0); Alkaline Phosphatase 63 U/L (38-126); Blood Urea Nitrogen 17 mg/dl (9-20); Calcium 9.8 mg/dl (8.4-10.2); Carbon Dioxide 28 mmol/L (22-30); Chloride 103 mmol/L (98-107); Glucose 92 mg/dl (70-99); Sodium 139 mmol/L (135-145); Total Bilirubin 0.9 mg/dl (0.2-1.3); Total Protein 6.5 g/dl (6.3-8.2); eGFR > 60.00
[2024-08-23 08:52] LABS: PSA, Total - Screen 0.39 ng/ml (0.0-4.0)
== END ==
LOC: REG 06:44
PROVIDERS: ATTENDING PHYSICIAN Specialist; FAMILY PHYSICIAN Family Medicine
DX: E29.1 Testicular hypofunction (principal); N52.9 Male erectile dysfunction, unspecified; Z12.5 Encounter for screening for malignant neoplasm of prostate
CPT/HCPCS: 36415; 80053; 84403; 85014; G0103

== ENCOUNTER → 2024-11-20 09:19 | Outpatient (REF) | payer OTHER, SELFPAY ==
[2024-11-20 10:42] LABS: Hematocrit 42.6 % (39.0-52.0)
[2024-11-20 11:25] LABS: ALT (SGPT) 24 U/L (0-50); AST (SGOT) 35 U/L (17-59); Albumin 4.3 g/dl (3.5-5.0); Alkaline Phosphatase 48 U/L (38-126); Blood Urea Nitrogen 15 mg/dl (9-20); Calcium 9.5 mg/dl (8.4-10.2); Carbon Dioxide 28 mmol/L (22-30); Chloride 109 mmol/L (98-107); Glucose 90 mg/dl (70-99); Potassium 4.6 mmol/L (3.5-5.1); Sodium 142 mmol/L (135-145); Total Bilirubin 0.7 mg/dl (0.2-1.3); Total Protein 6.2 g/dl (6.3-8.2); eGFR > 60.00
== END ==
LOC: REG 09:19
PROVIDERS: ATTENDING PHYSICIAN Specialist; FAMILY PHYSICIAN Family Medicine
DX: E29.1 Testicular hypofunction (principal); N52.9 Male erectile dysfunction, unspecified; Z12.5 Encounter for screening for malignant neoplasm of prostate
CPT/HCPCS: 36415; 80053; 84403; 85014

== ENCOUNTER → 2025-02-19 07:11 | Outpatient (REF) | payer OTHER, SELFPAY ==
[2025-02-19 07:57] LABS: Hematocrit 46.2 % (39.0-52.0)
[2025-02-19 08:32] LABS: ALT (SGPT) 29 U/L (0-50); AST (SGOT) 39 U/L (17-59); Albumin 4.4 g/dl (3.5-5.0); Alkaline Phosphatase 65 U/L (38-126); Blood Urea Nitrogen 17 mg/dl (9-20); Calcium 9.1 mg/dl (8.4-10.2); Carbon Dioxide 27 mmol/L (22-30); Chloride 106 mmol/L (98-107); Glucose 118 mg/dl (70-99); Potassium 4.5 mmol/L (3.5-5.1); Sodium 139 mmol/L (135-145); Total Protein 6.4 g/dl (6.3-8.2); eGFR > 60.00
== END ==
LOC: REG 07:11
PROVIDERS: ATTENDING PHYSICIAN Specialist; FAMILY PHYSICIAN Family Medicine
DX: E29.1 Testicular hypofunction (principal); N52.9 Male erectile dysfunction, unspecified; Z12.5 Encounter for screening for malignant neoplasm of prostate
CPT/HCPCS: 36415; 80053; 84403; 85014

== ENCOUNTER 2025-02-27 06:30 | Day surgery (SDC) | payer OTHER, SELFPAY | END 2025-02-27 12:36 | disposition home or self-care (01) | LOC: GI 06:30 | PROVIDERS: ATTENDING PHYSICIAN Internal Medicine | DX: Z12.11 Encounter for screening for malignant neoplasm of colon (principal); D12.0 Benign neoplasm of cecum; K57.30 Diverticulosis of large intestine without perforation or abscess without bleeding; K64.9 Unspecified hemorrhoids; K29.71 Gastritis, unspecified, with bleeding; K22.89 Other specified disease of esophagus; K44.9 Diaphragmatic hernia without obstruction or gangrene; R07.89 Other chest pain; R13.10 Dysphagia, unspecified; Z86.0101 Personal history of adenomatous and serrated colon polyps; D17.79 Benign lipomatous neoplasm of other sites | CPT/HCPCS: 45380; 43239; 88305; 88342 ==

== ENCOUNTER 2025-02-28 03:52 | Inpatient (IN) | payer OTHER, SELFPAY ==
[2025-02-28] VITALS (19 sets, daily range): BP systolic 107–180; BP diastolic 48–100; PULSE 65; BMI 29.4; BMI 28.3
[2025-02-28] MEDS: DILAUDID 1 MG IV ×2 (00:27→01:00)
[2025-02-28] MEDS: ZOFRAN 4 MG IV (00:27)
[2025-02-28] MEDS: NSS 1000 IV (00:27)
[2025-02-28 00:47] LABS: Hematocrit 46.3 % (39.0-52.0); Hemoglobin 16.0 g/dL (13.0-18.0); Mean Corp Hgb Conc. 34.6 g/dL (33.0-37.0); Mean Corpuscular Volume 95.3 fL (80.0-94.0); Nucleated Red Blood Cells % 0 % (-); Platelet Count 210 10^3/uL (130-400); Red Cell Dist. Width 12.9 % (11.5-14.5)
[2025-02-28 01:10] LABS: ALT (SGPT) 27 U/L (0-50); AST (SGOT) 28 U/L (17-59); Albumin 4.4 g/dl (3.5-5.0); Alkaline Phosphatase 64 U/L (38-126); Blood Urea Nitrogen 21 mg/dl (9-20); Calcium 10.1 mg/dl (8.4-10.2); Carbon Dioxide 29 mmol/L (22-30); Chloride 104 mmol/L (98-107); Glucose 109 mg/dl (70-99); Lipase 186 U/L (23-300); Potassium 4.3 mmol/L (3.5-5.1); Sodium 139 mmol/L (135-145); Total Protein 6.7 g/dl (6.3-8.2); eGFR > 60.00
--- NOTE | 2025-02-28 01:27 | ED.GENMED ---
History of Present Illness
General
Chief Complaint: Abdominal Pain
Time Seen by Provider: 02/28/25 00:18
History of Present Illness
History of Present Illness:
See MDM
Past History
Past History
ED Past Medical History: Arrthythmia (Paroxysmal atrial fibrillation), GERD, Hypercholesterolemia and Other (Gallstones, diverticulosis, umbilical hernia)
ED Past Surgical History: Orthopedic
Social History
Tobacco: Non-smoker
Alcohol: None
Drug: None
Personal:
Living: with family
Employment: Retired
Family History
Family History: Diabetes
Phy Exam
Physical Exam
Physical Exam:
See MDM
Course
Orders/Labs/Results
Orders:
Orders
02/28/25 00:24
CT Abd/pelvis W Iv Cont Urgent
Comment: recent EGD and C-scope
Reason For Exam: general abd pain
0.9% Sodium Chloride 1000 ml [Nss] 1,000 ml IV BOLUS
HYDROmorphone [Dilaudid] 1 mg IV NOW STA
Ondansetron Injectable [Zofran] 4 mg IV NOW STA
02/28/25 00:32
Complete Blood Count/With Diff Urgent
Comprehensive Metabolic Panel Urgent
Lipase Urgent
02/28/25 00:56
HYDROmorphone [Dilaudid] 1 mg IV NOW STA
02/28/25 01:48
US Abdomen Complete/Upper Urgent
Comment:
Reason For Exam: RUQ pain
Abnormal Lab Results
02/28/25
00:32
MCV 95.3 H fL
(80.0-94.0)
MCH 32.9 H pg
(27.0-31.0)
Abs Immat Gran (auto) 0.1 H 10^3/uL
(0-0.05)
Absolute Neuts (auto) 7.2 H 10^3/uL
(1.4-6.5)
Absolute Monos (auto) 1.1 H 10^3/uL
(0.1-0.6)
Immature Gran % 0.6 H %
(0-0.5)
Lymphocytes % 13.1 L %
(20.5-51.1)
Monocytes % 11.2 H %
(1.7-9.3)
BUN 21 H mg/dl
(9-20)
Glucose 109 H mg/dl
(70-99)
02/28/25 00:32
02/28/25 00:32
Vital Signs
Initial and Last Documented VS:
Initial Vital Signs
Temp Pulse Resp BP Pulse Ox
97.3 F 88 26 156/100 98
02/28/25 00:10 02/28/25 00:10 02/28/25 00:10 02/28/25 00:10 02/28/25 00:10
Last Documented Vital Signs
Temp Pulse Resp BP Pulse Ox
97.3 F 81 19 161/97 98
02/28/25 00:10 02/28/25 01:45 02/28/25 01:45 02/28/25 01:00 02/28/25 01:45
MDM/Problems Addressed
Differential Diagnosis Includes:
Note:
CHIEF COMPLAINT(S)
Belly pain following a recent colonoscopy.
HISTORY OF PRESENT ILLNESS
The patient is a 69-year-old male who presented with abdominal pain following a colonoscopy performed earlier today. The procedure included biopsies of the stomach area. The patient reports significant abdominal pain, described as being tender all
over, and even minimal movements, like shaking the bed, exacerbate the discomfort. The pain is associated with bloating and tenderness, and the patient finds it painful to take deep breaths. Concerns regarding possible complications from the
colonoscopy, such as bowel perforation or paralytic ileus, were discussed. The patients discomfort may be due to retained air in the gastrointestinal tract or potential air leakage into the peritoneal cavity. The possibility of post-procedure
inflammation, such as pancreatitis, is also being considered.
ALLERGIES
None reported.
REVIEW OF SYSTEMS
- Gastrointestinal: Abdominal pain, bloating, tenderness.
- Respiratory: Painful to take deep breaths.
PHYSICAL EXAM
General: Uncomfortable
Skin: Warm, dry.
Head: Normocephalic, atraumatic
Neck: Appears supple, trachea midline.
Eyes, Ears, Nose, Mouth, and Throat: Oral mucosa moist.
Cardiovascular: No signs of cyanosis
Respiratory: Respirations are non-labored.
Abdomen: Generalized abdominal tenderness which is worse in the epigastric and right upper quadrant
Musculoskeletal: No deformities
Neurological: No focal neurological deficit observed.
Psychiatric: Cooperative, appropriate mood and affect.
PROBLEM LIST
- Acute abdominal pain following colonoscopy.
- Bloating and difficulty breathing deeply.
PLAN
- Administer pain medication to manage abdominal pain.
- Administer fluids and anti-nausea medication.
- Perform further diagnostic evaluation to rule out bowel perforation and ensure there is no bowel obstruction or air leakage into the intra-abdominal cavity.
DIFFERENTIAL DIAGNOSIS
The Differential Diagnosis includes, in no particular order and is not limited to:
1. Bowel perforation
2. Paralytic ileus
3. Pancreatitis
4. Pneumoperitoneum
5. Bowel obstruction
6. Post-procedure gastritis
7. Peptic ulcer disease
8. Diverticulitis
9. Gastroesophageal reflux disease
10. Gallbladder disease
Disposition:
SUMMARY OF ENCOUNTER
The patient, a 69-year-old male, was seen in the emergency department due to abdominal pain following a recent colonoscopy with biopsies. A CT scan was performed, which showed no obvious free air but revealed large gallstones and mild surrounding
inflammatory changes. The patients abdominal pain persisted despite multiple doses of intravenous pain medication.
DISPOSITION
Admit to the hospitalist service.
ASSESSMENT
The patients abdominal pain may be attributed to biliary colic due to gallstones, alongside potential mild inflammatory changes. Further evaluation with an ultrasound is pending to confirm the diagnosis.
EMERGENCY TREATMENTS ADMINISTERED
Multiple doses of intravenous pain medication were administered to manage the patients discomfort.
PLAN
- Admit patient to the hospitalist service for continued monitoring and management.
- Pending ultrasound to evaluate gallbladder and surrounding structures.
- Consider surgical consultation based on ultrasound findings and patients clinical status.
INDEPENDENT REVIEW OF LABS AND INTERPRETATION OF TESTS
- My independent review of CT indicates the presence of large gallstones with mild surrounding inflammatory changes and no obvious free air.
MEDICAL DECISION MAKING
- Number and Complexity of Problems Addressed: Chronic conditions affecting care - Acute abdominal pain, potential biliary colic, gallstones.
- Complexities of Data Reviewed: Biliary colic due to gallstones, potential mild inflammatory changes.
- Data:
- Category 1: CT scan was ordered and independently reviewed, revealing large gallstones and mild inflammatory changes.
- Category 2: No additional historian input recorded.
- Category 3: Discussion with hospitalist team for admission and further management was conducted.
- Risk: Prescription drug management and decisions regarding further imaging tests with risks were considered.
DIAGNOSIS
- Biliary colic, unspecified (ICD-10: K80.80).
*Pulse Oximetry
SaO2: 99
Oxygen Mode of Delivery: Room air
Patient hypoxic: no
*Critical Care Note
Total Time (30-74mins, 75-104mins- exclusive of procedures): Not Applicable
ED Attending Note
-
Portions of this chart may have been created with voice recognition software.� Occasional wrong word or��sound alike� substitutions may have occurred due to the inherent limitations of voice recognition software.
Discharge Plan
Departure
Patient Disposition: Admit
Date of Disposition: 02/28/25
Time of Disposition: 02:57
Admit to: Med/Surg
Presentation/result/management discussed w/ accepting MD/DO: Hospitalist
Discharge Problem:
Biliary colic
Prescriptions:
No Action
zolpidem 10 MG tablet
10 mg PO HSPRN PRN (Reason: sleep)
metoprolol succinate 25 MG tablet extended release 24 hr
25 mg PO HS
testosterone [AndroGel] 1.25 GM gel in packet
1.62 gm TD DAILY
rosuvastatin 10 mg Tablet
10 mg PO DAILY
[place] 3
2 gummy PO DAILY
mupirocin 2 % Ointment
1 applic TOPICAL BID
sennosides [Senokot] 8.6 mg tablet
17.2 mg PO BID Qty: 2 0RF
acetaminophen [Tylenol] 325 mg tablet
650 mg PO QID Qty: 1 0RF
Rx Instructions:
SCHEDULED DOSING
aspirin 325 mg tablet
325 mg PO DAILY Qty: 1 0RF
Rx Instructions:
Take with food
magnesium hydroxide [Milk of Magnesia] 400 mg/5 mL suspension
30 ml PO HS PRN (Reason: Constipation) Qty: 1 0RF
dexamethasone 4 mg tablet
4 mg PO BID Qty: 6 0RF
Rx Instructions:
take with food
post-op use only
docusate sodium [Colace] 100 mg capsule
100 mg PO BID Qty: 1 0RF
celecoxib 100 mg capsule
100 mg PO BID Qty: 14 0RF
Rx Instructions:
take with food
ondansetron [ondansetron] 4 mg tablet,disintegrating
4 mg PO Q6H PRN (Reason: n/v) Qty: 20 0RF
Rx Instructions:
take 1/2h b/f pain med if recurrent nausea
allow to dissolve in mouth w/o water
oxycodone 5 mg tablet
5 mg PO Q6H PRN (Reason: 1 tab moderate pain, 2 tabs severe pain) Qty: 30 0RF
Rx Instructions:
Ongoing therapy
pantoprazole [Protonix] 40 mg tablet,delayed release (DR/EC)
40 mg PO DAILY Qty: 30 2RF
Referrals:
Brian Ashraf MD [Family Provider, Family Practice]
Interventions
Interventions:
*Risk Screen - Suicide Last Done: 02/28/25 00:10
*General Assessment Last Done: 02/28/25 00:44
*Neglect/Abuse Screening Last Done: 02/28/25 00:10
*ED- Fall Risk Assessment Last Done: 02/28/25 00:44
*ED COVID-19 Vaccine History Last Done: 02/28/25 00:44
RR-Ssmobu-Uvdbhqtcie Assessment Last Done: 02/28/25 00:43
Discharge Date and Time
Print Language: BELGIAN
--- NOTE | 2025-02-28 03:32 | HPS.HSE ---
Family Physician
-
Family Physician: Brian Ashraf MD
Chief Complaint
-
Abd Pain
History of Present Illness
Patient is a 69y M with PMH significant for MARGE and hypertension who presents to ED complaining of abdominal pain. Patient underwent colonoscopy and endoscopy on 02/27/25. He felt well upon returning home. He had a small lunch and noted some
epigastric discomfort about 15 minutes later. This discomfort improved after a short time but did not resolve. He ate dinner and the pain increased in intensity and became quite severe later in the evening. he developed nausea with 5 episodes of
non-bloody emesis. He denies any diarrhea. No fevers / chills.
Patient presented to the ED for further evaluation and treatment.
Patient states that he had similar symptoms in July that resolved after a brief time. He was seen in the ED, had an unremarkable work-up and was discharged home on PPI therapy which he has continued to take.
Medical History
Past Medical History
Past Medical History: Reports Other
Additional Past Medical History:
MARGE on CPAP
Hypertension
Hypogonadism
BPH
Insomnia
Atrial Fibrillation s/p Cardioversion
AAA s/p Repair
Past Surgical History: Reports Other
Additional Past Surgical History:
Left Wrist ORIF
Bilateral TKA
AAA Repair
Cervical Fusion
DCCV
Social History
Tobacco: Non-smoker
Alcohol: None
Drug: None
Family History
Family History: Not pertinent
Allergies / Home Medications
Allergies reflects when Allergies were last updated in [facility].
Home Medications with original date entered in [facility]
Allergy/Medication List:
Allergies
Allergy/AdvReac Type Severity Reaction Status Date / Time
No Known Drug Allergies Allergy Unknown Verified 02/28/25 00:14
Home Medications
aspirin 81 mg chewable tablet 81 mg PO DAILY 02/28/25
metoprolol succinate 25 mg tablet,extended release 24 hr 25 mg PO DAILY 02/28/25
pantoprazole 40 mg tablet,delayed release 40 mg PO DAILY 02/28/25
rosuvastatin 10 mg tablet 10 mg PO DAILY 02/28/25
tadalafil 20 mg tablet 20 mg PO DAILY PRN Sexual activity 02/28/25
testosterone 1 % (25 mg/2.5 gram) transdermal gel packet 1 packet topical DAILY 02/28/25
zolpidem 10 mg tablet 10 mg PO HS PRN Insomnia 02/28/25
Review of Systems
-
History Source: Patient
A 12 point ROS was completed and negative except as noted: Yes
Constitutional: Reports Fatigue; Denies Fever or Chills
Respiratory: Denies Cough or Trouble Breathing
Cardiac: Reports Chest Pain; Denies Palpitations
Abdomen/GI: Reports Abdominal Pain, Nausea and Vomiting; Denies Diarrhea, Bloody Stools or Black Stools
: Denies Dysuria, Frequency or Flank Pain
Musculoskeletal: Denies Joint Pain or Edema
Neurological: Denies Dizzy or Headache
Psych: Denies Depression or Anxiety
Physical Exam
Vital Signs
Vital Signs
Temp Pulse Resp BP Pulse Ox
97.3 F 81 19 161/97 98
02/28/25 00:10 02/28/25 01:45 02/28/25 01:45 02/28/25 01:00 02/28/25 01:45
Physical Exam
General: Other (69y M in mild distress due to pain.)
HEENT: Moist mucous membranes and PERRLA
Respiratory: Clear; No Wheezes, Rales or Rhonchi
Cardiac: S1/S2, Regular Rhythm and Murmur (II/ mid diastolic murmur)
GI: Soft, Non Distended, Normal Bowel Sounds and Other (Pos RUQ tendernes. Voluntary guarding throughout.)
Musculoskeletal: No Clubbing, No Cyanosis and Other (Trace edema at ankles.)
Neuro: AO x 3
Laboratory Results
-
02/28/25 00:32
02/28/25 00:32
Laboratory Results
Total Bilirubin 0.6 mg/dl (0.2-1.3) 02/28/25 00:32
AST 28 U/L (17-59) 02/28/25 00:32
ALT 27 U/L (0-50) 02/28/25 00:32
Alkaline Phosphatase 64 U/L (38-126) 02/28/25 00:32
Lipase 186 U/L (23-300) 02/28/25 00:32
Impression/Plan
-
A/P: Patient is a 69y M with PMH significant for hypertension, MARGE and hypogonadism who presents to ED complaining of abdominal pain several hours s/p endoscopy / colonoscopy.
Abdominal Pain
Gastritis
Cholelithiasis +/- Cholecystitis
- Admit for further evaluation and treatment.
- EGD done today with small hiatal hernia, congested esophageal mucosa, generalized gastritis / erythema / edema and 30mm gastric lesion removed with biopsy (multiple passes).
- Colonoscopy done today with hemorrhoids, diverticulosis and 2 cecal polyps removed with biopsy.
- Pain started after midday and evening meals and has increased significantly.
- CT and US done in the ED - no evidence of free air, perforation, etc.
- Both studies do demonstrate significant gallstone disease and mild gallbladder wall thickening.
- ? pain secondary to biopsies, gastritis, etc versus cholecystitis.
- IV abx for now.
- NPO, IVFs, pain control.
- IV PPI. Hold ASA for now.
- GI evaluation for additional recommendations.
- Follow for any new / worsening symptoms.
Benign Hypertension
- Stable. Continue metoprolol with holding parameters.
Paroxysmal Atrial Fibrillation
- No evidence of A-Fib following DCCV in 2018.
MARGE on CPAP
- Continue nightly CPAP (patient not aware of home settings).
Hypogonadism
- Hold testosterone supplementation acutely.
DVT Prophylaxis: SCDs
Code Status: Full
[2025-02-28] MEDS: TORADOL 15 MG IV (04:13)
[2025-02-28 05:02] LABS: Troponin I < 0.012 ng/ml
[2025-02-28 05:48] LABS: Hematocrit 43.4 % (39.0-52.0); Hemoglobin 15.3 g/dL (13.0-18.0); Mean Corp Hgb Conc. 35.3 g/dL (33.0-37.0); Mean Corpuscular Volume 94.8 fL (80.0-94.0); Platelet Count 197 10^3/uL (130-400); Red Cell Dist. Width 12.8 % (11.5-14.5)
[2025-02-28] MEDS: ZOSYN 50 IV ×4 (05:56→23:30)
[2025-02-28] MEDS: DILAUDID 0.5 MG IV ×2 (05:57→09:57)
[2025-02-28 06:35] LABS: Troponin I < 0.012 ng/ml
[2025-02-28] MEDS: LR 1000 IV ×2 (06:42→17:35)
--- NOTE | 2025-02-28 07:28 | CON.GI ---
Addendum entered and electronically signed by Lara Burton DO 02/28/25 13:43:
Patient seen and examined independently of the [employer] G[employer]ENER. I agree with her note with my additions below
Brigido is my outpatient. He 69-year-old male history of A-fib with cardioversion on aspirin, MARGE on CPAP who I did an endoscopy and a colonoscopy on yesterday 02/27/2025 that was uncomplicated. In recovery he felt well. He went home had lunch with
chicken and had epigastric pain and nausea about 15 minutes after eating. Seem to resolve and then second attempt to eat dinner had more intense pain that lasted hours along with nausea vomiting. Denies any radiation into his back. He did have a
pain back in July but it was more sharp shooting pain around the xiphoid area. It was not the same character as this.
Vital signs afebrile, slightly hypertensive, pulse 72
On exam he appears uncomfortable especially with palpation.
Abdomen is soft with bowel sounds but tender more in the epigastric and right upper quadrant
Objective data:
-- 02/28/2025 abdominal ultrasound shows complete opacification of the gallbladder lumen with multiple gallstones and sludge. Minimal gallbladder wall thickness of 5 mm with no pericholecystic fluid.
--- 02/28/2025 CT scan shows a distended gallbladder filled with several stones with high attenuation fluid material with no inflammatory stranding. No oral contrast was given. No other GI findings except extensive sigmoid diverticulosis
--- 02/28/2025 white count 12,000, normal hemoglobin, platelets 197, normal LFTs, negative troponins, normal CMP
#abdominal pain
-- Patient's symptoms are consistent with biliary colic. Gallbladder is completely opacified with stones and sludge. Highly unlikely related to the bite on bite biopsies of the subepithelial antral lesion
-- No evidence of choledocholithiasis with normal LFTs
-- Pain control
-- Patient going for cholecystectomy now
-- Discussed with patient and his
We will sign off. Please call back if we could be of any service.
Original Note:
Consultation
-
Date/Time Consultation Requested: 02/28/25 0530
Date/Time Consultation Performed: 02/28/25 1000
Requesting Provider: Yehuda Wheeler DO
Performing Provider: EMILI Saenz, Twan Douglas MD
Reason for Consultation: abdominal pain
Medical History
Chief Complaint / HPI
Chief Complaint: abdominal pain
History of Present Illness:
Pt is 69yo afib with prior cardioversion, HTN, MARGE on CPAP, hypogonadism, BPH, insomnia with EGD/colon on 02/27 with onset of abdominal pain. In ER noted with initial HTN, no fever, WBC up to 12.1 after admission with otherwise normal hbg and
chemistry with normal LFT's and lipase. In review with patient he has episode last July with similar pain but only lasted brief period. Now he admits he returned from EGD/colon at 1:30pm then ate chicken with pain 15 minutes after eating. He
has second attempt with eating dinner with similar pain after eating and persistent pain since that time. He did take some pepto and noted vomiting dark with small amount of blood then after 5 th episode of vomiting brought up bile. He rates pain
as initially 7/10 then 10/[address] with distended GB with stone and sludge developing or early acute cholecystitis note excluded. No acute finding in GI tract. US with similar finding with complete opacification of the gallbladder
lumen by multiple gallstones and sludge. Gallbladder wall thickening may reflect acute cholecystitis. Daily ASA no other NSAID use. Pt did take suprep prior to procedure.
In review with patient he denies any current odynophagia, dysphagia(but EGD done for dysphagia/prior chest pain), diarrhea, constipation, blood or black in stools but admits to some dark urine this am.
02/27 colonoscopy - walp to cecum - The exam was otherwise normal to the cecum.
- Hemorrhoids found on perianal exam.
- Diverticulosis in the left colon and in the transverse colon.
- Two diminutive (1-3 mm) polyps in the cecum, removed with a jumbo
cold forceps. Resected and retrieved.
02/27 EGD Walp - Small hiatal hernia.
- No endoscopic esophageal abnormality to explain patient's
dysphagia.
- Congested esophagus, slightly fibrotic feeling when getting
biopsies.
- No findings to explain chest pain
- Gastric antral protruding subepithelial lesion, possibly lipoma.
Biopsied. Bite on bite biopsies obtained.
- Gastritis, characterized by erosions, erythema, congestion
(edema) and adherent blood. Biopsied.
- Normal examined duodenum.
Past Medical History
Past Medical History: Arrhythmias (afib), HTN and Other (MARGE on CPAP, hypogonadism, BPH, insomnia)
Past Surgical History: Cardiac (prior cardioversion) and Other (AAA s/p repair )
Social History
Tobacco: Non-Smoker
Alcohol: None
Drug: None
Personal:
Living: With Family
Employment: Retired
Family History
Family History: Other (no family hx GI issues )
Allergies / Home Medications
Allergy/AdvReac Type Severity Reaction Status Date / Time
No Known Drug Allergies Allergy Unknown Verified 02/28/25 00:14
�Medication �Instructions �Recorded
aspirin 81 mg chewable tablet 81 mg PO DAILY 02/28/25
metoprolol succinate 25 mg 25 mg PO DAILY 02/28/25
tablet,extended release 24 hr
pantoprazole 40 mg tablet,delayed 40 mg PO DAILY 02/28/25
release
rosuvastatin 10 mg tablet 10 mg PO DAILY 02/28/25
tadalafil 20 mg tablet 20 mg PO DAILY PRN Sexual activity 02/28/25
testosterone 1 % (25 mg/2.5 gram) 1 packet topical DAILY 02/28/25
transdermal gel packet
zolpidem 10 mg tablet 10 mg PO HS PRN Insomnia 02/28/25
Review of Systems
-
History Source: Patient
Constitutional: Reports No Symptoms
EENT: Reports No Symptoms
Respiratory: Reports No Symptoms
Cardiac: Reports No Symptoms
Abdomen/GI: Reports Abdominal Pain, Nausea and Vomiting
: Reports Dark Urine (this am)
Musculoskeletal: Reports No Symptoms
Skin: Reports No Symptoms
Neurological: Reports No Symptoms
Endocrine: Reports No Symptoms
Hematologic/Lymphatic: Reports Bleeding (trace blood with vomiting )
Vital Signs
Temp Pulse Resp BP Pulse Ox
98.6 F 79 17 143/81 97
02/28/25 07:22 02/28/25 07:22 02/28/25 07:22 02/28/25 07:22 02/28/25 07:22
Physical Exam
Exam
General: Well Developed, Well Nourished and Other (distress with pain )
HEENT: Normocephalic and Anicteric
Respiratory: Clear
Cardiac: Regular Rhythm
GI: Soft, Non Distended and Tender (mid upper abdomen with slight guarding )
Musculoskeletal: No Clubbing and No Cyanosis
Skin: Warm and Dry
Neuro: Awake, Alert and AO x 3
Psych: Calm
Results
WBC 12.1 10^3/uL (4.8-10.8) H 02/28/25 05:41
Hgb 15.3 g/dL (13.0-18.0) 02/28/25 05:41
Hct 43.4 % (39.0-52.0) 02/28/25 05:41
MCV 94.8 fL (80.0-94.0) H 02/28/25 05:41
Plt Count 197 10^3/uL (130-400) 02/28/25 05:41
Absolute Neuts (auto) 7.2 10^3/uL (1.4-6.5) H 02/28/25 00:32
Sodium 139 mmol/L (135-145) 02/28/25 00:32
Potassium 4.3 mmol/L (3.5-5.1) 02/28/25 00:32
Chloride 104 mmol/L (98-107) 02/28/25:
Carbon Dioxide 29 mmol/L (22-30) 02/28/25:
BUN 21 mg/dl (9-20) H 02/28/25:
Creatinine 1.1 mg/dL (0.7-1.3) 02/28/25
Calcium 10.1 mg/dl (8.4-10.2) 02/28/25
Total Bilirubin 0.6 mg/dl (0.2-1.3) 02/28/25
AST 28 U/L (17-59) 02/28/25
ALT 27 U/L (0-50) 02/28/25
Alkaline Phosphatase 64 U/L (38-126) 02/28/25
Lipase 186 U/L (23-300) 02/28/25
Diagnostic Image Results:
02/27 colonoscopy - walp to cecum - The exam was otherwise normal to the cecum.
- Hemorrhoids found on perianal exam.
- Diverticulosis in the left colon and in the transverse colon.
- Two diminutive (1-3 mm) polyps in the cecum, removed with a jumbo
cold forceps. Resected and retrieved.
02/27 EGD Walp - Small hiatal hernia.
- No endoscopic esophageal abnormality to explain patient's
dysphagia.
- Congested esophagus, slightly fibrotic feeling when getting
biopsies.
- No findings to explain chest pain
- Gastric antral protruding subepithelial lesion, possibly lipoma.
Biopsied. Bite on bite biopsies obtained.
- Gastritis, characterized by erosions, erythema, congestion
(edema) and adherent blood. Biopsied.
- Normal examined duodenum.
02/28 CT A/p
1. Distended gallbladder containing several stones and hyperdense material/sludge. No adjacent inflammatory stranding or fluid. However, a developing or early acute cholecystitis cannot be excluded in the appropriate clinical setting. Consider
further evaluation with ultrasound.
2. No acute findings involving the gastrojejunostomy tract. Extensive sigmoid diverticulosis. No pelvic free fluid.
3. Multifocal cortical scarring within the right kidney.
02/28 US abdomen
Complete opacification of the gallbladder lumen by multiple gallstones and sludge. Gallbladder wall thickening may reflect acute cholecystitis, and clinical correlation is advised.
Assessment / Plan
-
Pt is 69yo afib with prior cardioversion, HTN, MARGE on CPAP, hypogonadism, BPH, insomnia with EGD/colon on 02/27 with onset of abdominal pain. In ER noted with initial HTN, no fever, WBC up to 12.1 after admission with otherwise normal hbg and
chemistry with normal LFT's and lipase. In review with patient he has episode last July with similar pain but only lasted brief period. Now he admits he returned from EGD/colon at 1:30pm then ate chicken with pain 15 minutes after eating. He
has second attempt with eating dinner with similar pain after eating and persistent pain since that time. He did take some pepto and noted vomiting dark with small amount of blood then after 5 th episode of vomiting brought up bile. He rates pain
as initially 7/10 then 10/[address] with distended GB with stone and sludge developing or early acute cholecystitis note excluded. No acute finding in GI tract. US with similar finding with complete opacification of the gallbladder
lumen by multiple gallstones and sludge. Gallbladder wall thickening may reflect acute cholecystitis. Daily ASA no other NSAID use. Pt did take suprep prior to procedure.
02/27 colonoscopy - walp to cecum - The exam was otherwise normal to the cecum.
- Hemorrhoids found on perianal exam.
- Diverticulosis in the left colon and in the transverse colon.
- Two diminutive (1-3 mm) polyps in the cecum, removed with a jumbo
cold forceps. Resected and retrieved.
02/27 EGD Walp - Small hiatal hernia.
- No endoscopic esophageal abnormality to explain patient's
dysphagia.
- Congested esophagus, slightly fibrotic feeling when getting
biopsies.
- No findings to explain chest pain
- Gastric antral protruding subepithelial lesion, possibly lipoma.
Biopsied. Bite on bite biopsies obtained.
- Gastritis, characterized by erosions, erythema, congestion
(edema) and adherent blood. Biopsied.
- Normal examined duodenum.
-RUQ abdominal pain
-CT and US with cholelithiasis and concern for cholelithiasis and early cholecystitis
-s/p EGD/colonoscopy 02/27 as noted
-episode with chest pain similar last July
-mild leukocytosis
other med problems:
-HTN
-PAF prior Cardioversion
-MARGE on Cpap
-hypogonadism
-BPH
-insomnia
PLAN:
Etiology of continued abdominal pain related to cholecystitis vs other
pt saw dark emesis after pepto/small amount of blood ? from bx then cleared with vomiting with stable hbg 15.3
EGD and colon reviewed with Dr. Burton minimal biopsy doubt procedure related results as noted
LFT's remain normal with elevated WBC's
NPO
will have surgery eval patient for janett
reviewed with Dr. Calix
cont pain control
cont PPI
-
-
Thank you for consultation and allowing me to participate in the patient's care. Please call the sales promotion director GI physician during the after hours with any questions or concerns.
[2025-02-28 07:35] LABS: ALT (SGPT) 25 U/L (0-50); AST (SGOT) 27 U/L (17-59); Albumin 4.3 g/dl (3.5-5.0); Alkaline Phosphatase 57 U/L (38-126); Blood Urea Nitrogen 16 mg/dl (9-20); Calcium 9.6 mg/dl (8.4-10.2); Carbon Dioxide 26 mmol/L (22-30); Chloride 107 mmol/L (98-107); Estimated Creatinine Clearance 82 ml/min; Glucose 110 mg/dl (70-99); Potassium 3.9 mmol/L (3.5-5.1); Sodium 141 mmol/L (135-145); Total Protein 6.5 g/dl (6.3-8.2); eGFR > 60.00
[2025-02-28] MEDS: PROTONIX IV 40 MG IV ×2 (09:48→20:43)
[2025-02-28] MEDS: TOPROL XL 25 MG PO (09:49)
[2025-02-28] MEDS: NSS (PRESERVATIVE FREE) 10 ML IV ×2 (09:49→20:43)
--- NOTE | 2025-02-28 11:49 | CON.GS ---
Addendum entered and electronically signed by Ramon Mejias MD 02/28/25 14:31:
I was physically present and personally performed the brady portions of the surgical evaluation and/or procedure with the resident. I discussed the findings, reviewed the resident�s note, and confirmed the medical decision-making. I provided direct
supervision as required and agree with the assessment and plan as documented with the following additions/corrections:
HPI: Patient is a 69-year-old male presenting with acute onset of epigastric and right upper quadrant abdominal pain rating to his back. He has had a couple milder episodes like this in the past. He underwent EGD and colonoscopy yesterday. Had a
small lunch which prompted the acute onset of his pain. It subsided somewhat but after dinner it returned with increased severity with nausea vomiting and chills. His pain persists.
Past medical history is notable for MARGE, hypertension, A-fib status post cardioversion
Past abdominal surgical history is only notable for open umbilical herniorrhaphy
AFVSS
NAD AAO x 3 but acutely ill-appearing
ABD: Softly distended tenderness to palpation localized in the right upper quadrant with positive Lauren sign. No generalized rebound rigidity or guarding.
Ultrasound and CT imaging reviewed. There is a sizable gallstone in the neck of the gallbladder with significant gallbladder distention and surrounding inflammatory changes. No biliary ductal dilation.
Laboratory testing notable for a white blood cell count of 12.1 today LFTs remain within normal limits as well as lipase.
Assessment/plan: 69-year-old male with probable acute calculous cholecystitis.
Reviewed with patient and his at bedside indications for cholecystectomy which they are in agreement to proceed with.
Laparoscopic cholecystectomy with intraoperative cholangiogram was reviewed in detail including the operative technique, alternative treatment options, benefits and potential risk such as but not limited to bleeding, infectious and wound related
complications, iatrogenic injury to surrounding viscera, bile duct injury, bile leak. We discussed typical postoperative recovery pending operative findings. Any of the patient's concerns or questions were fully addressed and written informed
consent was obtained.
Patient is on the OR schedule for today
Continue Zosyn perioperatively.
Original Note:
Medical History
-
Chief Complaint: biliary colic
History of Present Illness:
Patient is a 69-year-old male past medical history of MARGE, HTN, A-fib s/p cardioversion presenting with abdominal pain. Patient had a scheduled screening colonoscopy and EGD yesterday. Patient went home from the procedure and felt fine, tried to
eat a small lunch, and had some epigastric discomfort. Patient said the pain lessened and tried to eat dinner last night, but the pain became much more severe. Patient describes the pain as a 10 out of 10, and is associated with nausea and
vomiting, patient describes the pain as epigastric and RUQ. In the ED patient had abdominal ultrasound which showed complete opacification of the gallbladder lumen by stones and sludge with gallbladder wall thickening. Patient had a CT abdomen
pelvis which showed a distended gallbladder with stones and sludge. There were no acute findings in GJ tract. On review of prior imaging patient has had gallstones visualized. Patient has a history of an umbilical hernia repair 12 years ago.
Findings on the endoscopy included a small hiatal hernia, gastric antral protruding subepithelial lesion which was biopsied, gastritis with erosions erythema and edema which was biopsied. Colonoscopy revealed hemorrhoids, diverticula, 2 semisessile
polyps in the cecum which were removed. Today patient's white blood cell was 12.1. Liver enzymes are WNL. Patient is still having pain in the RUQ and epigastric region. Patient denies current nausea. Patient has not had a bowel movement since
his prep for the colonoscopy. Patient denies all other ROS.
Past Medical History
Past Medical History: Arrhythmias (S/p cardioversion), HTN and Other (MARGE)
Past Surgical History: Hernia Repair (Umbilical 12 years ago)
Allergies / Home Medications
Allergy/AdvReac Type Severity Reaction Status Date / Time
No Known Drug Allergies Allergy Unknown Verified 02/28/25 00:14
�Medication �Instructions �Recorded �Confirmed �Type
aspirin 81 mg chewable tablet 81 mg PO DAILY 02/28/25 02/28/25 History
metoprolol succinate 25 mg 25 mg PO DAILY 02/28/25 02/28/25 History
tablet,extended release 24 hr
pantoprazole 40 mg tablet,delayed 40 mg PO DAILY 02/28/25 02/28/25 History
release
rosuvastatin 10 mg tablet 10 mg PO DAILY 02/28/25 02/28/25 History
tadalafil 20 mg tablet 20 mg PO DAILY PRN Sexual activity 02/28/25 02/28/25 History
testosterone 1 % (25 mg/2.5 gram) 1 packet topical DAILY 02/28/25 02/28/25 History
transdermal gel packet
zolpidem 10 mg tablet 10 mg PO HS PRN Insomnia 02/28/25 02/28/25 History
Review of Systems
-
History Source: Patient
Constitutional: Chills
EENT: No Symptoms
Respiratory: No Symptoms
Cardiac: No Symptoms
Abdomen/GI: Abdominal Pain, Nausea and Vomiting
: No Symptoms
Musculoskeletal: No Symptoms
Skin: No Symptoms
Neurological: No Symptoms
Endocrine: No Symptoms
Hematologic/Lymphatic: No Symptoms
A 10 point review of systems was completed, and was negative except as per HPI.
Physical Exam
Vital Signs
Temp Pulse Resp BP Pulse Ox
98.8 F 72 17 151/77 97
02/28/25 10:45 02/28/25 10:45 02/28/25 10:45 02/28/25 10:45 02/28/25 10:45
02/27/25 02/28/25 03/01/25
06:59 06:59 06:59
Actual Weight 89.584 kg
Body Mass Index (BMI) 28.3
Lab Results
02/28/25 05:41
02/28/25 05:41
WBC 12.1 10^3/uL (4.8-10.8) H 02/28/25 05:41
Hgb 15.3 g/dL (13.0-18.0) 02/28/25 05:41
Hct 43.4 % (39.0-52.0) 02/28/25 05:41
Plt Count 197 10^3/uL (130-400) 02/28/25 05:41
Abs Immat Gran (auto) 0.1 10^3/uL (0-0.05) H 02/28/25 00:32
Neutrophils % 74.2 % (42.2-75.2) 02/28/25 00:32
Physical Exam
General: Well Developed and No Apparent Distress
GI: Tender (Mild RUQ tenderness, epigastric tenderness) and Distended
Psych: Calm
Data Reviewed
-
CT Scan: Image Personally Visualized and interpreted and Discussed with Physician
Ultrasound: Image Personally Visualized and interpreted and Discussed with Physician
Assessment / Plan
-
Patient is a 69-year-old male presenting with RUQ and epigastric pain.
Assessment
Acute cholecystitis -distended gallbladder containing several stones and sludge visualized on CT abdomen pelvis and abdominal ultrasound today
Leukocytosis WBC 12.1
H/o umbilical hernia repair without mesh
Plan
Discussed with patient surgical option of laparoscopic cholecystectomy. Discussed the procedure and associated risks. Patient is amenable to have the surgery done today.
Will continue antibiotics, IVF and patient will stay NPO
Plan for OR today, patient will stay overnight.
--- NOTE | 2025-02-28 12:18 | W.PN.HOSP.TC ---
Today's Communication/Plan
-
Monitor vital signs and see plan
Evaluated by surgery, plan for laparoscopic cholecystectomy today
Pain control
Antibiotic
Nonbillable note
Assessment / Plan
Assessment / Plan
General: Other (69y M in mild distress due to pain.)
HEENT: Moist mucous membranes and PERRLA
Respiratory: Clear; No Wheezes, Rales or Rhonchi
Cardiac: S1/S2, Regular Rhythm and Murmur (II/ mid diastolic murmur)
GI: Soft, Non Distended, Normal Bowel Sounds and Other (Pos RUQ tendernes)
Musculoskeletal: Other (Trace edema at ankles.)
Neuro: AO x 3
Abdominal Pain
Gastritis
Cholelithiasis with cholecystitis
Surgery consulted, plan for laparoscopic cholecystectomy 02/28
- EGD done 02/27 with small hiatal hernia, congested esophageal mucosa, generalized gastritis / erythema / edema and 30mm gastric lesion removed with biopsy (multiple passes).
- Colonoscopy done 02/27 with hemorrhoids, diverticulosis and 2 cecal polyps removed with biopsy.
- Pain started after midday and evening meals and has increased significantly.
- CT and US done in the ED - no evidence of free air, perforation, etc. concerning for cholecystitis
- IV abx for now.
- NPO, IVFs, pain control.
- IV PPI for now. Hold ASA for now.
GI following
Benign Hypertension
- Stable. Continue metoprolol with holding parameters.
Paroxysmal Atrial Fibrillation
- No evidence of A-Fib following DCCV in 2018.
MARGE on CPAP
- Continue nightly CPAP (patient not aware of home settings).
Hypogonadism
- Hold testosterone supplementation acutely.
DVT Prophylaxis: SCDs
Code Status: Full
Anticipated Discharge: Within 24 hours
Subjective/Interval History
-
Date of Service: February 28, 2025
Abdominal pain
Objective Data
-
Labs:
Laboratory Results
02/28/25 02/28/25
00:32 05:41
WBC 9.7 12.1 H
Hgb 16.0 15.3
Hct 46.3 43.4
Plt Count 210 197
Sodium 139 141
Potassium 4.3 3.9
Chloride 104 107
Carbon Dioxide 29 26
BUN 21 H 16
Creatinine 1.1 0.9
Glucose 109 H 110 H
Calcium 10.1 9.6
Total Bilirubin 0.6 0.8
AST 28 27
ALT 27 25
Alkaline Phosphatase 64 57
Vital Signs:
Vital Signs
Temp Pulse Resp BP Pulse Ox
98.8 F 72 17 151/77 97
02/28/25 10:45 02/28/25 10:45 02/28/25 10:45 02/28/25 10:45 02/28/25 10:45
[2025-02-28 12:28] LABS: Troponin I 0.013 ng/ml
--- NOTE | 2025-02-28 14:31 | W.SUR.PREOP ---
Pre-Operative Surgical Note
-
I have examined this patient prior to the performance of the scheduled procedure.
The patient's condition is unchanged from the time of the current History and
Physical and the patient is able to undergo the scheduled procedure.
--- NOTE | 2025-02-28 16:56 | W.IMMPOSTOP ---
Addendum entered and electronically signed by Ramon Mejias MD 02/28/25 17:23:
#[id number]
Original Note:
Surgical Immed Post Op Note
-
Primary Surgeon: Ramon Mejias MD
Assisting Surgeon: Rupal Cadena
Pre-op Diagnosis: Acute calculous cholecystitis
Post-op Diagnosis: Gangrenous acute calculous cholecystitis
Procedure Performed: Laparoscopic cholecystectomy with cholangiogram
Anesthesia Type: GETA +0.25% Marcaine
Specimen / Cultures: Gallbladder/none
Estimated Blood Loss: 22 mL
Complications: None immediate
Operative Findings: Tensely distended gallbladder with a large impacted stone in the neck. Patchy gangrenous changes throughout with wall thickening and edema. Cyst needle decompression. Cystic artery and smaller branches identified and
controlled with clips. Cystic duct identified with wide critical view of safety. Intraoperative cholangiogram performed and normal as well as confirming biliary anatomy. Cystic duct controlled with 3 clips proximally to ductotomy. Gallbladder
removed off liver bed without spillage of stones. Extracted at epigastric port site which had to be enlarged to about 3 cm or slightly larger in the setting of severe gallbladder edema and large stones.
Drain: 19 Riley right upper quadrant secured to the lateral 5 mm trocar site with 2-0 nylon stitch.
Plan: Clear liquid diet postop
Zosyn -and continue with 5-day course of postoperative coverage
Likely maintain drain for 5 days postop
Updated patient's postoperatively via phone call
[2025-02-28] MEDS: DILAUDID 0.25 MG IV (23:30)
[2025-03-01] VITALS (7 sets, daily range): BP systolic 108–147; BP diastolic 69–78; PULSE 71
[2025-03-01] MEDS: LR 1000 IV (00:22)
[2025-03-01] MEDS: DILAUDID 0.25 MG IV (03:56)
[2025-03-01] MEDS: ZOSYN 50 IV ×3 (06:04→18:45)
[2025-03-01 07:47] LABS: Hematocrit 41.2 % (39.0-52.0); Hemoglobin 14.2 g/dL (13.0-18.0); Mean Corp Hgb Conc. 34.5 g/dL (33.0-37.0); Mean Corpuscular Volume 96.9 fL (80.0-94.0); Nucleated Red Blood Cells % 0 % (-); Platelet Count 178 10^3/uL (130-400); Red Cell Dist. Width 13.3 % (11.5-14.5)
[2025-03-01 08:18] LABS: ALT (SGPT) 46 U/L (0-50); AST (SGOT) 41 U/L (17-59); Albumin 3.6 g/dl (3.5-5.0); Alkaline Phosphatase 51 U/L (38-126); Blood Urea Nitrogen 11 mg/dl (9-20); Calcium 8.7 mg/dl (8.4-10.2); Carbon Dioxide 28 mmol/L (22-30); Chloride 107 mmol/L (98-107); Estimated Creatinine Clearance 82 ml/min; Glucose 128 mg/dl (70-99); Potassium 4.5 mmol/L (3.5-5.1); Sodium 140 mmol/L (135-145); Total Protein 5.7 g/dl (6.3-8.2); eGFR > 60.00
[2025-03-01] MEDS: TOPROL XL 25 MG PO (08:56)
[2025-03-01] MEDS: NSS (PRESERVATIVE FREE) 10 ML IV ×2 (08:56→20:07)
[2025-03-01] MEDS: DILAUDID 0.5 MG IV ×3 (08:56→22:09)
[2025-03-01] MEDS: PROTONIX IV 40 MG IV ×2 (08:56→20:07)
--- NOTE | 2025-03-01 10:46 | W.PN.GS2 ---
Addendum entered and electronically signed by Antione Watt MD 03/01/25 11:21:
Patient seen and examined. Agree assessment plan as document below.
Pain overall significantly improved. No nausea or vomiting. Passing flatus, no BM. Afebrile.
Gen: NAD
Abd: soft, mild tenderness, ND, non-peritoneal, incisions c/d/i - no erythema, ecchymosis or drainage
Patient is a 69 yo M presenting with gangrenous acute calculous cholecystitis
POD #1 lap janett with IOC
AFVSS
Labs notable for downtrending leukocytosis, stable Hb, normal electrolytes and renal function, normal bilirubin and LFTs
Tolerating clears
KODY with serous non bilious outputs
Plan:
-- LFD
-- pain control: Tylenol, Toradol, Oxycodone
-- Abx: Zosyn, anticipate total of 5 day ax course with transition to PO agent upon d/c
-- DC IVF
-- C/W KODY, pending outputs may be able to remove prior to d/c
-- DVT: Lovenox
-- GI: home PPI
Original Note:
Today's Communication / Plan
-
advance diet
c/w IV abx
Assessment / Plan
-
69 yo mlae presenting with gangrenous acute calculous cholecystitis now POD #1 lap janett with IOC
AFVSS
No leukocytosis
Bilirubin top normal, other LFT's wnl
Tolerating clears
KODY with serous non bilious outputs
Plan:
Continue IV abx in immediate post op period given operative findings, anticipate total of 5 day ax course with transition to PO agent upon d/c
C/W KODY, pending outputs may be able to remove prior to d/c
Advance diet
Tylenol, toradol, oxycodone, dilaudid for pain
Ok to d/c IVF
Lovenox and scds for vte ppx post op
Medical management as per primary team
Anticipate ready for d/c tomorrow on oral abx if continues to improve
Subjective Data
-
Date of Service: March 01, 2025
Pt seen and examined at bedside with Dr. Watt. Denies n/v. tolerating clears. Pain improving from preop but sore. Passing flatus, no BM as of yet.
Objective Data
-
Intake and Output
02/28/25 03/01/25 03/02/25
06:59 06:59 06:59
Intake Total 1730 / 1730
Output Total 32 / 32
Balance 1698 / 1698
Intake:
IV fluids (Total) 1630 / 1630
normosol 50 / 50
IV piggybacks 100 / 100
Output:
Drain Output (Total) 32 / 32
Right Lower Abdomen 32 / 32
Other:
Number of approximated MODERATE 2
amounts of urine
Vital Signs
Temp Pulse Resp BP Pulse Ox
97.8 F 66 17 135/74 96
03/01/25 07:37 03/01/25 07:37 03/01/25 07:37 03/01/25 07:37 03/01/25 07:37
Lab Results
03/01/25 07:27
03/01/25 07:27
Calcium 8.7 mg/dl (8.4-10.2) 03/01/25 07:27
Total Bilirubin 1.2 mg/dl (0.2-1.3) 03/01/25 07:27
Direct Bilirubin 0.2 mg/dl (0.0-0.4) 02/28/25 05:41
AST 41 U/L (17-59) 03/01/25 07:27
ALT 46 U/L (0-50) 03/01/25 07:27
Alkaline Phosphatase 51 U/L (38-126) 03/01/25 07:27
Total Protein 5.7 g/dl (6.3-8.2) L 03/01/25 07:
Albumin 3.6 g/dl (3.5-5.0) 03/01/25 07:27
Physical Exam
-
NAD
ABD soft, expected tenderness, nd
KODY with serous drainage
Incisions well approximated with intact glue
--- NOTE | 2025-03-01 12:23 | W.PN.HOSP.TC ---
Today's Communication/Plan
-
Monitor vital signs see plan
Pain control
Continue KODY drain
Continue abx
Surgery following
Assessment / Plan
Assessment / Plan
General: Other (69y M in mild distress due to pain.)
HEENT: Moist mucous membranes and PERRLA
Respiratory: Clear; No Wheezes, Rales or Rhonchi
Cardiac: S1/S2, Regular Rhythm and Murmur (II/ mid diastolic murmur)
GI: Soft, Non Distended, Normal Bowel Sounds and Other (Pos RUQ tendernes)
Musculoskeletal: Other (Trace edema at ankles.)
Neuro: AO x 3
Abdominal Pain
Gastritis
Cholelithiasis with acute cholecystitis
Surgery following
- EGD done 02/27 with small hiatal hernia, congested esophageal mucosa, generalized gastritis / erythema / edema and 30mm gastric lesion removed with biopsy (multiple passes).
- Colonoscopy done 02/27 with hemorrhoids, diverticulosis and 2 cecal polyps removed with biopsy.
- Pain started after midday and evening meals and has increased significantly.
- CT and US done in the ED - no evidence of free air, perforation, etc. concerning for cholecystitis
- IV abx for now.
Status post lap janett with IOC 02/28
Continue with KODY drain per surgery. Continue with antibiotic
- IV PPI for now. Restart aspirin
GI following
Benign Hypertension
- Stable. Continue metoprolol with holding parameters.
Paroxysmal Atrial Fibrillation
- No evidence of A-Fib following DCCV in 2018.
MARGE on CPAP
- Continue nightly CPAP (patient not aware of home settings).
Hypogonadism
- Hold testosterone supplementation acutely.
DVT Prophylaxis: SCDs, Lovenox
Code Status: Full
Anticipated Discharge: Within 24 hours
Subjective/Interval History
-
Date of Service: March 01, 2025
denies nausea
Objective Data
-
Labs:
Laboratory Results
03/01/25
07:27
WBC 11.1 H
Hgb 14.2
Hct 41.2
Plt Count 178
Sodium 140
Potassium 4.5
Chloride 107
Carbon Dioxide 28
BUN 11
Creatinine 0.9
Glucose 128 H
Calcium 8.7
Total Bilirubin 1.2
AST 41
ALT 46
Alkaline Phosphatase 51
Vital Signs:
Vital Signs
Temp Pulse Resp BP Pulse Ox
97.8 F 74 17 108/74 97
03/01/25 11:13 03/01/25 11:13 03/01/25 11:13 03/01/25 11:13 03/01/25 11:13
I&O
02/28/25 03/01/25 03/02/25
06:59 06:59 06:59
Intake Total 1730 / 1730
Output Total 32 / 32
Balance 1698 / 1698
[2025-03-01] MEDS: LOW STRENGTH ASPIRIN 81 MG PO (14:09)
--- NOTE | 2025-03-01 15:48 | CM ---
CM met with Brigido who resides alone in a 2 story home. He is independent at baseline; no DME, no hx of VN or SNF. He has been ambulatory in his room.
Brigido has a Rx plan and uses [facility] in [place]. He plans to drive himself home, no needs anticipated.
PCP is Dr. Francisco Pwoers. CM continues to be available to patient/family and is monitoring medical plan for needs at discharge.
Plan: d/c to home with no identified needs.
[2025-03-01] MEDS: LOVENOX 40 MG SC (18:44)
[2025-03-02] MEDS: ZOSYN 50 IV ×3 (02:18→12:07)
[2025-03-02 03:30] VITALS: BP 140/67
[2025-03-02] MEDS: ROXICODONE 5 MG PO (06:36)
[2025-03-02 07:55] VITALS: BP 148/80
[2025-03-02 08:08] LABS: Hematocrit 41.5 % (39.0-52.0); Hemoglobin 13.9 g/dL (13.0-18.0); Mean Corp Hgb Conc. 33.5 g/dL (33.0-37.0); Mean Corpuscular Volume 96.1 fL (80.0-94.0); Nucleated Red Blood Cells % 0 % (-); Platelet Count 178 10^3/uL (130-400); Red Cell Dist. Width 13.2 % (11.5-14.5)
[2025-03-02] MEDS: TOPROL XL 25 MG PO (08:23)
[2025-03-02] MEDS: NSS (PRESERVATIVE FREE) 10 ML IV (08:23)
[2025-03-02] MEDS: LOW STRENGTH ASPIRIN 81 MG PO (08:23)
[2025-03-02] MEDS: PROTONIX IV 40 MG IV (08:23)
[2025-03-02 08:32] LABS: ALT (SGPT) 38 U/L (0-50); AST (SGOT) 33 U/L (17-59); Albumin 3.6 g/dl (3.5-5.0); Alkaline Phosphatase 43 U/L (38-126); Blood Urea Nitrogen 13 mg/dl (9-20); Calcium 9.0 mg/dl (8.4-10.2); Carbon Dioxide 27 mmol/L (22-30); Chloride 109 mmol/L (98-107); Estimated Creatinine Clearance 74 ml/min; Glucose 96 mg/dl (70-99); Potassium 4.3 mmol/L (3.5-5.1); Sodium 140 mmol/L (135-145); Total Protein 6.0 g/dl (6.3-8.2); eGFR > 60.00
--- NOTE | 2025-03-02 11:07 | W.PN.HOSP.TC ---
Addendum entered and electronically signed by Rakan Calix MD 03/02/25 11:49:
Time of discharge 37 minutes
Original Note:
Today's Communication/Plan
-
Monitor vital signs see plan
Surgery to see today
Likely discharge home today with KODY drain and antibiotic
Pain control
Low-fat diet
Assessment / Plan
Assessment / Plan
General: Other (69y M in mild distress due to pain.)
HEENT: Moist mucous membranes and PERRLA
Respiratory: Clear; No Wheezes, Rales or Rhonchi
Cardiac: S1/S2, Regular Rhythm and Murmur (II/ mid diastolic murmur)
GI: Soft, Non Distended, Normal Bowel Sounds and Other (Pos RUQ tendernes)
Musculoskeletal: Other (Trace edema at ankles.)
Neuro: AO x 3
Abdominal Pain
Gastritis
Cholelithiasis with acute cholecystitis
Surgery following
- EGD done 02/27 with small hiatal hernia, congested esophageal mucosa, generalized gastritis / erythema / edema and 30mm gastric lesion removed with biopsy (multiple passes).
- Colonoscopy done 02/27 with hemorrhoids, diverticulosis and 2 cecal polyps removed with biopsy.
- Pain started after midday and evening meals and has increased significantly.
- CT and US done in the ED - no evidence of free air, perforation, etc. concerning for cholecystitis
- IV abx for now.
Status post lap janett with IOC 02/28
Continue with KODY drain per surgery. Continue with antibiotic. Discussed with surgery. Likely 5 days of antibiotics. Likely will go home with drain. Tolerating low-fat diet. Surgery to see today
- IV PPI for now. Restarted aspirin
GI following
Benign Hypertension
- Stable. Continue metoprolol with holding parameters.
Paroxysmal Atrial Fibrillation
- No evidence of A-Fib following DCCV in 2018.
MARGE on CPAP
- Continue nightly CPAP (patient not aware of home settings).
Hypogonadism
- Hold testosterone supplementation acutely.
DVT Prophylaxis: SCDs, Lovenox
Code Status: Full
Anticipated Discharge: Today
Subjective/Interval History
-
Date of Service: March 02, 2025
denies pain
Objective Data
-
Labs:
Laboratory Results
03/02/25
07:45
WBC 7.7
Hgb 13.9
Hct 41.5
Plt Count 178
Sodium 140
Potassium 4.3
Chloride 109 H
Carbon Dioxide 27
BUN 13
Creatinine 1.0
Glucose 96
Calcium 9.0
Total Bilirubin 0.9
AST 33
ALT 38
Alkaline Phosphatase 43
Vital Signs:
Vital Signs
Temp Pulse Resp BP Pulse Ox
98.4 F 61 20 148/80 100
03/02/25 07:55 03/02/25 08:23 03/02/25 07:55 03/02/25 08:23 03/02/25 07:55
I&O
03/01/25 03/02/25 03/03/25
06:59 06:59 06:59
Intake Total 1730 / 1730 940 / 940
Output Total 32 / 32 70 / 70
Balance 1698 / 1698 870 / 870
--- NOTE | 2025-03-02 11:35 | W.PN.GS2 ---
Today's Communication / Plan
-
dispo planning
Assessment / Plan
-
69 yo mlae presenting with gangrenous acute calculous cholecystitis now POD #2 lap janett with IOC
AFVSS
Labs stable
tolerating diet
KODY with serous non bilious outputs
Plan:
Continue ABX for total of 5 days post op, transition to Augmentin upon d/c
C/W KODY, will leave in place upon d/c and remove early next week as an OP. CM consulted for VNA arrangements
Continue current diet
Analgesics prn
Lovenox and scds for vte ppx post op
Medical management as per primary team
Ok for d/c from surgical standpoint
Subjective Data
-
Date of Service: March 02, 2025
Pt seen and examined at bedside. Denies n/v. Tolerating diet. No bm as of yet but passing flatus. Denies voiding difficulty. Sore but no severe pain.
Objective Data
-
Intake and Output
03/01/25 03/02/25 03/03/25
06:59 06:59 06:59
Intake Total 1730 / 1730 940 / 940
Output Total 70 / 70
Balance 1698 / 1698 870 / 870
Intake:
Oral fluids 840 / 840
IV fluids (Total) 1630 / 1630 100 / 100
normosol 50 / 50
IV piggybacks 100 / 100
Output:
Drain Output (Total) 70 / 70
Right Lower Abdomen 70 / 70
Other:
Number of approximated MODERATE 2 3
amounts of urine
Vital Signs
Temp Pulse Resp BP Pulse Ox
98.4 F 61 20 148/80 100
03/02/25 07:55 03/02/25 08:23 03/02/25 07:55 03/02/25 08:23 03/02/25 07:55
Lab Results
03/02/25 07:45
03/02/25 07:45
Calcium 9.0 mg/dl (8.4-10.2) 03/02/25 07:45
Total Bilirubin 0.9 mg/dl (0.2-1.3) 03/02/25 07:45
Direct Bilirubin 0.2 mg/dl (0.0-0.4) 02/28/25 05:41
AST 33 U/L (17-59) 03/02/25 07:45
ALT 38 U/L (0-50) 03/02/25 07:45
Alkaline Phosphatase 43 U/L (38-126) 03/02/25 07:45
Total Protein 6.0 g/dl (6.3-8.2) L 03/02/25 07:45
Albumin 3.6 g/dl (3.5-5.0) 03/02/25 07:45
Physical Exam
-
NAD
ABD soft, expected tenderness, nd
KODY with light SSF drainage
Incisions well approximated with intact glue
--- NOTE | 2025-03-02 11:54 | W.DCSUMMARY ---
Discharge Summary
Discharge Data
Date of Admission: 02/28/25
Date of Discharge: 03/02/25
-
Pending Results: No
Hospital Course
69-year-old male with past medical history of hypertension, paroxysmal atrial fibrillation, MARGE on CPAP, hypogonadism came to the hospital with abdominal pain consistent with cholelithiasis with acute cholecystitis. Patient was seen by surgery and
underwent lap janett with IOC on 02/28/2025. He also got a KODY drain postprocedure. Per surgery recommendation patient was discharged with p.o. antibiotics and KODY drain. Over time after cholecystectomy, he was able to tolerate low-fat diet and his
pain was also controlled on p.o. meds. Since his pain was improving and he was feeling better, he was then discharged home with instructions to follow-up with all his physicians outpatient.
Discharge Plan
-
Patient Disposition: Home with Home Care
Discharge Diagnosis/Procedures: Cholelithiasis with acute cholecystitis
Diet: As tolerated and Low Fat
Activity: As tolerated and No strenuous activity
Driving Restrictions: As prior to admission
Bathing Restrictions: OK to Shower
Activity Restrictions/Additional Instructions:
Post-Operative Instructions for Gallbladder Surgery
The incision sites are sealed with a surgical glue dressing. It is safe to shower at any time after surgery when the glue is dry. Let shower water run over the incisions and then pat dry.
Glue dressing typically peels off in 2-3 weeks.
Abdominal/incisional pain and discomfort, shoulder/scapular pain, bloating, and mild nausea, as well as bruising/stiffness and swelling at the incision sites are common after surgery. If felt to be excessive, notify us.
Please start postoperative pain management using over the counter medications such as Tylenol and Ibuprofen, per instructions on the bottle, as long as there are no medical reasons why you cannot take these medications.
Ice the incisions sites for 20 minutes every hour or so to help with postoperative incisional pain and reduce postoperative surgical site swelling. Take care NOT to get an ice burn on the skin surface.
A warm heating pad is often helpful to alleviate shoulder/scapular back pains after laparoscopic procedures. This pain typically dissipates 24-72hrs post op.
Transition to a low fat diet as tolerated after surgery if not experiencing postoperative nausea or significant bloating/distention. Some fatty food intolerance may occur shortly after surgery (cramps,bloating, nausea,diarrhea with fat intake).
Constipation is common following surgery and postoperative narcotic use. May use a stool softener such as Colace (100 mg 2x day) to prevent constipation
If no BM 24hrs after surgery, recommend starting daily Miralax
If no BM in 24-48hrs after starting Miralax --> recommend then using a dose of magnesium citrate or milk of magnesia with a Senokot tablet to help alleviate post operative constipation as long as there is no nausea/vomiting and passing gas.
Resume all preoperative medications as prescribed, unless directed otherwise.
Do not drive or drink alcohol for 24 hrs after having anesthesia or while taking narcotic pain medications.
Resume regular daily light activities, such as walking, standing and going up/down stairs as tolerated within 24hrs of surgery. Please refrain from lifting over 20 lbs or strenuous exercise until postoperative follow up visit &/or approximately 3-4
weeks.
Call the office with a fever above 101� F, nausea with vomiting, severe abdominal pain, yellowing of skin or eyes, spreading redness and drainage from incision sites or with any concerns/questions.
Follow-up with surgery for drain, please call the office to schedule
Instructions: How to care for a closed suction drain
Referrals:
Ramon Mejias MD [Active, Surgical] - in less than 1 week
Brian sAhraf MD [Family Provider, Family Practice] - in less than 1 week
Prescriptions:
New
acetaminophen 325 mg Tablet
650 mg PO Q4HPRN PRN (Reason: Mild Pain / Temp > 101) Qty: 0 0RF
docusate sodium 100 mg Capsule
100 mg PO BID Qty: 0 0RF
oxycodone 5 mg Tablet
5 mg PO Q4HPRN PRN (Reason: moderate to severe pain) Qty: 15 0RF
amoxicillin-pot clavulanate 875-125 mg tablet
1 tab PO Q12H Qty: 6 0RF
Continued
pantoprazole 40 mg tablet,delayed release (DR/EC)
40 mg PO DAILY
aspirin 81 mg Tablet,Chewable
81 mg PO DAILY
metoprolol succinate 25 mg tablet extended release 24 hr
25 mg PO DAILY
zolpidem 10 mg tablet
10 mg PO HS PRN (Reason: Insomnia)
testosterone 1 % (25 mg/2.5gram) gel in packet
1 packet topical DAILY
rosuvastatin 10 mg tablet
10 mg PO DAILY
tadalafil 20 mg tablet
20 mg PO DAILY PRN (Reason: Sexual activity)
Discharge Orders:
Discharge Patient (As Directed); Ordered 03/02/25
Ordered By: Rakan Calix
Discharge Date and Time
Discharge Date/Time: 03/02/25 13:39
Print Language: TAMAZIGHT
[2025-03-02 12:15] VITALS: BP 135/90
--- NOTE | 2025-03-02 12:46 | CM ---
Patient seen at bedside
discharge today
CM consult completed VN
options provided. Prefers [facility]
notified liaison Cathie - referral placed in [facility]
IMM explained & signed. In chart
PLAN: Home with [facility]
Son to transport
== END 2025-03-02 13:39 | disposition home health service (06) | DRG 419 ==
LOC: 3 WEST ACU 03:52
PROVIDERS: Radiology Diagnostic Radiology; ADMITTING PHYSICIAN Hospitalist; ATTENDING PHYSICIAN Internal Medicine; CONSULT PHYSICIAN Surgery; EMERGENCY PHYSICIAN Student in an Organized Health Care Education/Training Program; FAMILY PHYSICIAN Family Medicine; OTHER PHYSICIAN Internal Medicine
PROC: BF101ZZ Fluoroscopy of Bile Ducts using Low Osmolar Contrast (ICD-10-PCS; 2025-02-28)
PROC: 0FT44ZZ Resection of Gallbladder, Percutaneous Endoscopic Approach (ICD-10-PCS; 2025-02-28)
DX: K80.00 Calculus of gallbladder with acute cholecystitis without obstruction (principal); K82.A1 Gangrene of gallbladder in cholecystitis; I48.0 Paroxysmal atrial fibrillation; I10 Essential (primary) hypertension; K21.9 Gastro-esophageal reflux disease without esophagitis; G47.33 Obstructive sleep apnea (adult) (pediatric); E29.1 Testicular hypofunction; N40.0 Benign prostatic hyperplasia without lower urinary tract symptoms; G47.00 Insomnia, unspecified; K44.9 Diaphragmatic hernia without obstruction or gangrene; K29.70 Gastritis, unspecified, without bleeding; K57.30 Diverticulosis of large intestine without perforation or abscess without bleeding; Z96.653 Presence of artificial knee joint, bilateral; Z86.79 Personal history of other diseases of the circulatory system; Z79.899 Other long term (current) drug therapy; Z79.82 Long term (current) use of aspirin
CPT/HCPCS: 74177; 74300; 76000; 76700; 80048; 80053; 80076; 83690; 84484; 85025; 85027; 88304; 93005; 94660; 96361; 96374; 96375; 99285; A4300; Q9967

== ENCOUNTER → 2025-04-05 15:12 | Outpatient (REF) | payer OTHER, SELFPAY | LOC: RAD 15:12 | PROVIDERS: ATTENDING PHYSICIAN Specialist; FAMILY PHYSICIAN Family Medicine | DX: Z96.652 Presence of left artificial knee joint (principal); M79.662 Pain in left lower leg | CPT/HCPCS: 93971 ==

== ENCOUNTER 2025-05-02 06:16 | Day surgery (SDC) | payer OTHER, SELFPAY ==
[2025-05-02 08:15] VITALS: BP 106/68
[2025-05-02 08:29] VITALS: BMI 27.3
[2025-05-02 08:30] VITALS: BMI 27.3
[2025-05-02 09:55] VITALS: BP 101/65
[2025-05-02 10:00] VITALS: BP 101/64
[2025-05-02 10:15] VITALS: BP 103/71
[2025-05-02 10:26] VITALS: BP 118/68
== END 2025-05-02 10:38 | disposition home or self-care (01) ==
LOC: GI 06:16
PROVIDERS: ATTENDING PHYSICIAN Internal Medicine Gastroenterology
DX: K31.89 Other diseases of stomach and duodenum (principal); K86.9 Disease of pancreas, unspecified; K31.7 Polyp of stomach and duodenum; K86.89 Other specified diseases of pancreas
CPT/HCPCS: 43254; 43237; 88305

== ENCOUNTER 2025-05-05 01:42 | Inpatient (IN) | payer OTHER, SELFPAY ==
[2025-05-04 23:25] VITALS: BP 117/67; BMI 29.3
[2025-05-04 23:37] LABS: Hematocrit 33.6 % (39.0-52.0); Hemoglobin 11.0 g/dL (13.0-18.0); Mean Corp Hgb Conc. 32.7 g/dL (33.0-37.0); Mean Corpuscular Volume 98.2 fL (80.0-94.0); Nucleated Red Blood Cells % 0 % (-); Platelet Count 226 10^3/uL (130-400); Red Cell Dist. Width 13.0 % (11.5-14.5)
--- NOTE | 2025-05-04 23:39 | ED.GENMED ---
History of Present Illness
<Kailey Terrazas PA-C - Last Filed: 05/05/25 05:13>
General
Chief Complaint: Vomiting Blood
Source: patient
Exam Limitations: none
Time Seen by Provider: 05/04/25 23:33
Nursing documentation reviewed up to this point in time: agreed with
History of Present Illness
History of Present Illness:
Note:
CHIEF COMPLAINT(S)
Vomiting blood and black stools.
HISTORY OF PRESENT ILLNESS
The patient is a 69-year-old male with pmh of afib, htn, hlp who presents with hematemesis and melena. The patient underwent an endoscopy a few days ago, during which a lesion at the top of the stomach was noted. Following this procedure, the
patient started experiencing black stools beginning Tuesday. He self-administered Pepto-Bismol in response to abdominal discomfort. The patient also reported a significant episode of hematemesis, described as 'all blood with clots,' occurring after
feeling dizzy and nauseous. He has a history of gastric and intestinal problems which were last evaluated approximately 8 to 10 years ago in the ER. The patients hemoglobin is reported low at 11 g/dL, down from his usual range of 13 to 14 g/dL. He
denies current pain or new symptoms of gastric ulcers or alcohol use. He denies fever.
PAST MEDICAL AND SURIGICAL HISTORY
The patient had his gallbladder removed recently. He does not have a history of gastric ulcers or alcohol abuse.
SOCIAL HISTORY
The patient reports no alcohol or substance use.
REVIEW OF SYSTEMS
- Gastrointestinal: Black stools, vomiting of blood with clots. No current pain reported.
- Neurological: Dizzy sensation prior to hematemesis.
PHYSICAL EXAM
General: Alert, no acute distress.
Skin: Warm, dry.
Head: Normocephalic, atraumatic.
Neck: Supple, trachea midline.
Eye, Ears, Nose, Mouth, and Throat: Oral mucosa moist.
No blood in posterior pharynx
Cardiovascular: Regular rate and rhythm, no murmur. Normal peripheral perfusion, no edema.
Respiratory: Respirations are non-labored.
Gastrointestinal: Abdomen nondistended, no tenderness upon palpation.
Heme positive melena noted
Back: Normal range of motion, normal alignment.
Musculoskeletal: Normal range of motion, normal strength.
Neurological: Alert and oriented to person, place, time, and situation; no focal neurological deficit observed.
Psychiatric: Cooperative, appropriate mood and affect.
PROBLEM LIST
Acute:
- Hematemesis
- Melena
- Low hemoglobin
PLAN
1. The patient will be admitted for observation to monitor hemoglobin levels and ensure stability, with potential input from gastroenterology for further management.
2. Blood work will be performed and trended to monitor for further drops in hemoglobin.
3. Administer a proton pump inhibitor via IV for gastric protection.
4. Consent obtained for potential blood transfusion if hemoglobin levels drop further.
5. Coordinate consultation with a car rental agent for potential endoscopic evaluation or intervention.
DIFFERENTIAL DIAGNOSIS
The differential diagnosis includes, in no particular order and is not limited to:
1. Upper gastrointestinal bleed
2. Gastric ulcer
3. Gastritis
4. Vidhya-Richardson tear
5. Esophagitis
6. Peptic ulcer disease
7. Gastric carcinoma
8. Variceal hemorrhage
9. Dieulafoys lesion
10. Post-endoscopy bleeding
UPDATE
Patient went to the bathroom and was assisted with nursing staff when he had a near syncopal episode. He was found by nursing staff on his knees and from the toilet. He reports feeling dizzy while he was standing and kneeled himself onto the
ground. Patient is on to be pale diaphoretic. He not fall and hit his head. He was held back into the bed. Fluids were started and blood was ordered
CHART REVIEW
Reviewed endoscopy procedure report from 05/02/2025
reviewed discharge summary from 05/02/2025 patient seen for biliary colic
MDM/DISPOSITION
69-year-old male presents to the ER with concerns of acute upper GI bleeding. He had an endoscopy on 05/[address] Damon where he had polyps removed. Today he presents with melena for the past days he had 1 episode of hematemesis at home. He did
have a presyncopal episode in the ER. He is getting transfused with Protonix. His hemoglobin is 11.0 which is down from his baseline. Dr. Laboy customer service receptionist for GI made aware. Patient referred for admission.
Past History
<Kailey Terrazas PA-C - Last Filed: 05/05/25 05:13>
Past History
ED Past Medical History: Arrthythmia (Paroxysmal atrial fibrillation), GERD, Hypercholesterolemia and Other (Gallstones, diverticulosis, umbilical hernia)
ED Past Surgical History: Orthopedic
Social History
Tobacco: Non-smoker
Alcohol: None
Drug: None
Personal:
Living: with family
Employment: Retired
Family History
Family History: Diabetes
Phy Exam
<Kailey Terrazas PA-C - Last Filed: 05/05/25 05:13>
Physical Exam
Physical Exam:
see hpi
Course
<Kailey Terrazas PA-C - Last Filed: 05/05/25 05:13>
Orders/Labs/Results
Orders:
Orders
05/04/25 23:29
Cardiac Monitoring- Treatment ONCE
IV Insert/Care/Rem.- Treatment PRN
Pulse Ox/spot Check [RESP] Urgent
Quantity: 1
Special Instructions: ON ROOM AIR
05/04/25 23:32
Type+Screen Urgent
Complete Blood Count/With Diff Urgent
Comprehensive Metabolic Panel Urgent
PTT Urgent
Prothrombin Time Urgent
05/05/25 00:16
IV Insert/Care/Rem.- Treatment PRN
Pantoprazole 80 mg/100 ml Nss [Protonix] 80 mg in 100 ml IV NOW
Pantoprazole [Protonix IV] 40 mg IV NOW STA
05/05/25 00:42
Blood Bank Products [* Blood Bank Products] Urgent
Blood Bank Products: *Packed RBC Leuko (PRBC's
Quantity: 1
Transfuse Today: Yes
Reason: Anemia
05/05/25 00:49
0.9% Sodium Chloride 1000 ml [Nss] 1,000 ml IV BOLUS
05/05/25 01:31
Admit/Transfer Patient As Directed
Co-Sign Provider:
Level of Care: Inpatient admission
Assign to:: IMU- Intermediate Care
Physician / Group: Liam
Diagnosis: UGIB
Reason for Hospitalization: UGIB
Expected length of stay greater than two midnights?: Yes
ELOS- Estimated Length of Stay in days: 3
I certify the patient meets the requirements for IP care: Yes
PRN Pain Medication Management As Directed
May give lesser potent ordered pain med per pt: Yes
preference::
Protocol:: Medication orders for pain may be administered in a
manner that supports deferring to patient preference
when the pt is:
- Requesting an ordered lesser potent pain medication.
Least to most potent pain medications are defined
as: acetaminophen < NSAID < tramadol < opioids
(morphine, oxycodone, hydromorphone).
- Requesting a lesser dose of the same medication IF
ORDERED.
- Requesting a less intrusive route of administration
if both routes are prescribed by the provider (PO <
IV).
05/05/25 01:32
Code Status As Directed
Resuscitation Status: Full Code
05/05/25 02:43
HH [H&H] Q6H
0.9% Sodium Chloride 1000 ml [Nss] 1,000 ml IV 125 mls/hr
Acetaminophen [Tylenol] 650 mg PO Q4HPRN PRN
Ondansetron Injectable [Zofran] 4 mg IV Q6HPRN PRN
05/05/25 02:43
GASTROINTESTINAL CONSULT Routine
Consulting Provider: Valentin Laboy
Was physician already notified: Yes
Reason for consult: UGIB, s/p EGD
Activity As Directed
Activity Level: Bedrest
Bladder Scan As Directed
Follow Bladder Retention/Intermittent Cath Algorithm?: Yes
PRN if no void in __ hours: 6
Frequency: Per Retention Algorithm
If Bladder Scan Result >: 400
then:: Straight cath
EKG with chest pain [ECG as needed] As Directed
ECG as needed for:: Chest Pain
I/O [Intake/ Output] As Directed
Frequency: Per unit guidelines
Pneumatic Compression Sleeves As Directed
Type: Knee high
Straight Cath As Directed
Frequency: Per Retention Algorithm
Additional Instructions: straight cath as needed per acute urinary retention algorithm for 24 hrs
Additional Instructions: for bladder scan greater than 400 mL
Vital Signs As Directed
Frequency: Per unit guidelines
Oxygen Therapy [O2 Therapy] [RESP] Routine
Titrate/Wean O2 to maintain O2 sat greater than (%): 94
DX Deep Vein Thrombosis Video Routine
05/05/25 Breakfast
NPO
Allow oral meds: Yes
Allow clear liquids: Sips of Clears
Basic Metabolic Panel IN AM
05/05/25 08:43
HH [H&H] Q6H
05/05/25 14:43
HH [H&H] Q6H
05/05/25 20:43
HH [H&H] Q6H
Abnormal Lab Results
05/04/25
23:32
WBC 12.6 H 10^3/uL
(4.8-10.8)
RBC 3.42 L 10^6/uL
(4.70-6.10)
Hgb 11.0 L g/dL
(13.0-18.0)
Hct 33.6 L %
(39.0-52.0)
MCV 98.2 H fL
(80.0-94.0)
MCH 32.2 H pg
(27.0-31.0)
MCHC 32.7 L g/dL
(33.0-37.0)
Absolute Neuts (auto) 9.7 H 10^3/uL
(1.4-6.5)
Absolute Monos (auto) 1.0 H 10^3/uL
(0.1-0.6)
Neutrophils % 77.1 H %
(42.2-75.2)
Lymphocytes % 14.0 L %
(20.5-51.1)
PT 15.1 H Sec
(11.4-14.6)
BUN 37 H mg/dl
(9-20)
Glucose 140 H mg/dl
(70-99)
Total Protein 5.5 L g/dl
(6.3-8.2)
Crossmatch IS Only See Detail
05/04/25 23:32
05/04/25 23:32
Vital Signs
Initial and Last Documented VS:
Initial Vital Signs
Temp Pulse Resp BP Pulse Ox
97.3 F 91 20 117/67 97
05/04/25 23:25 05/04/25 23:25 05/04/25 23:25 05/04/25 23:25 05/04/25 23:25
Last Documented Vital Signs
Temp Pulse Resp BP Pulse Ox
98.6 F 65 12 112/74 97
05/05/25 04:17 05/05/25 04:17 05/05/25 04:17 05/05/25 04:17 05/05/25 04:17
<German Ramos, - Last Filed: 05/05/25 02:09>
Orders/Labs/Results
Orders:
Orders
05/04/25 23:29
Cardiac Monitoring- Treatment ONCE
IV Insert/Care/Rem.- Treatment PRN
Pulse Ox/spot Check [RESP] Urgent
Quantity: 1
Special Instructions: ON ROOM AIR
05/04/25 23:32
Type+Screen Urgent
Complete Blood Count/With Diff Urgent
Comprehensive Metabolic Panel Urgent
PTT Urgent
Prothrombin Time Urgent
05/05/25 00:16
IV Insert/Care/Rem.- Treatment PRN
Pantoprazole 80 mg/100 ml Nss [Protonix] 80 mg in 100 ml IV NOW
Pantoprazole [Protonix IV] 40 mg IV NOW STA
05/05/25 00:42
Blood Bank Products [* Blood Bank Products] Urgent
Blood Bank Products: *Packed RBC Leuko (PRBC's
Quantity: 1
Transfuse Today: Yes
Reason: Anemia
05/05/25 00:49
0.9% Sodium Chloride 1000 ml [Nss] 1,000 ml IV BOLUS
05/05/25 01:31
Admit/Transfer Patient As Directed
Co-Sign Provider:
Level of Care: Inpatient admission
Assign to:: IMU- Intermediate Care
Physician / Group: Liam
Diagnosis: UGIB
Reason for Hospitalization: UGIB
Expected length of stay greater than two midnights?: Yes
ELOS- Estimated Length of Stay in days: 3
I certify the patient meets the requirements for IP care: Yes
PRN Pain Medication Management As Directed
May give lesser potent ordered pain med per pt: Yes
preference::
Protocol:: Medication orders for pain may be administered in a
manner that supports deferring to patient preference
when the pt is:
- Requesting an ordered lesser potent pain medication.
Least to most potent pain medications are defined
as: acetaminophen < NSAID < tramadol < opioids
(morphine, oxycodone, hydromorphone).
- Requesting a lesser dose of the same medication IF
ORDERED.
- Requesting a less intrusive route of administration
if both routes are prescribed by the provider (PO <
IV).
05/05/25 01:32
Code Status As Directed
Resuscitation Status: Full Code
05/05/25 02:43
HH [H&H] Q6H
0.9% Sodium Chloride 1000 ml [Nss] 1,000 ml IV 125 mls/hr
Acetaminophen [Tylenol] 650 mg PO Q4HPRN PRN
Ondansetron Injectable [Zofran] 4 mg IV Q6HPRN PRN
05/05/25 02:43
GASTROINTESTINAL CONSULT Routine
Consulting Provider: Valentin Laboy
Was physician already notified: Yes
Reason for consult: UGIB, s/p EGD
Activity As Directed
Activity Level: Bedrest
Bladder Scan As Directed
Follow Bladder Retention/Intermittent Cath Algorithm?: Yes
PRN if no void in __ hours: 6
Frequency: Per Retention Algorithm
If Bladder Scan Result >: 400
then:: Straight cath
EKG with chest pain [ECG as needed] As Directed
ECG as needed for:: Chest Pain
I/O [Intake/ Output] As Directed
Frequency: Per unit guidelines
Pneumatic Compression Sleeves As Directed
Type: Knee high
Straight Cath As Directed
Frequency: Per Retention Algorithm
Additional Instructions: straight cath as needed per acute urinary retention algorithm for 24 hrs
Additional Instructions: for bladder scan greater than 400 mL
Vital Signs As Directed
Frequency: Per unit guidelines
Oxygen Therapy [O2 Therapy] [RESP] Routine
Titrate/Wean O2 to maintain O2 sat greater than (%): 94
DX Deep Vein Thrombosis Video Routine
05/05/25 Breakfast
NPO
Allow oral meds: Yes
Allow clear liquids: Sips of Clears
Basic Metabolic Panel IN AM
05/05/25 08:43
HH [H&H] Q6H
05/05/25 14:43
HH [H&H] Q6H
05/05/25 20:43
HH [H&H] Q6H
Abnormal Lab Results
05/04/25
23:32
WBC 12.6 H 10^3/uL
(4.8-10.8)
RBC 3.42 L 10^6/uL
(4.70-6.10)
Hgb 11.0 L g/dL
(13.0-18.0)
Hct 33.6 L %
(39.0-52.0)
MCV 98.2 H fL
(80.0-94.0)
MCH 32.2 H pg
(27.0-31.0)
MCHC 32.7 L g/dL
(33.0-37.0)
Absolute Neuts (auto) 9.7 H 10^3/uL
(1.4-6.5)
Absolute Monos (auto) 1.0 H 10^3/uL
(0.1-0.6)
Neutrophils % 77.1 H %
(42.2-75.2)
Lymphocytes % 14.0 L %
(20.5-51.1)
PT 15.1 H Sec
(11.4-14.6)
BUN 37 H mg/dl
(9-20)
Glucose 140 H mg/dl
(70-99)
Total Protein 5.5 L g/dl
(6.3-8.2)
Crossmatch IS Only See Detail
05/04/25 23:32
05/04/25 23:32
Vital Signs
Initial and Last Documented VS:
Initial Vital Signs
Temp Pulse Resp BP Pulse Ox
97.3 F 91 20 117/67 97
05/04/25 23:25 05/04/25 23:25 05/04/25 23:25 05/04/25 23:25 05/04/25 23:25
Last Documented Vital Signs
Temp Pulse Resp BP Pulse Ox
98.6 F 65 12 112/74 97
05/05/25 04:17 05/05/25 04:17 05/05/25 04:17 05/05/25 04:17 05/05/25 04:17
<Kailey Terrazas PA-C - Last Filed: 05/05/25 05:13>
*Pulse Oximetry
SaO2: 97
Oxygen Mode of Delivery: Room air
<DO Jennifer Anne Last Filed: 05/05/25 02:09>
*Pulse Oximetry
Patient hypoxic: no
*Critical Care Note
Total Time (30-74mins, 75-104mins- exclusive of procedures): 35 minutes
ED Attending Note
<Kailey Terrazas PA-C - Last Filed: 05/05/25 05:13>
-
Portions of this chart may have been created with voice recognition software.� Occasional wrong word or��sound alike� substitutions may have occurred due to the inherent limitations of voice recognition software.
<German Ramos DO - Last Filed: 05/05/25 02:09>
ED Attending Note
Patient seen and examined by attending physician: Yes
I performed the substantive portion of visit, reviewed & personally made and approve the management plan that is documented in note by myself or LULU.: Yes
ED Attending Note:
69-year-old male who recently had endoscopy with biopsy. Presents after he had black stools but also tonight vomited a significant amount of bright red blood. EMS reports that the patient had a moderate amount of bright red blood. In emergency
department he did tried to get up to go to the bathroom and had a syncopal event. On my assessment his vital signs have normalized. He does appear slightly pale but no respiratory distress abdomen nondistended. Assessment and plan: Has a 3-4 g
drop of hemoglobin from February. In light of his syncopal event and hematemesis, transfuse 1 unit for now. Protonix drip. Case discussed with gastroenterology by LULU. Patient counseled on the importance of staying in bed. nursing also advised
the patient.
Discharge Plan
Departure
Patient Disposition: Admit
Date of Disposition: 05/05/25
Time of Disposition: 00:50
Admit to: Med/Surg
Presentation/result/management discussed w/ accepting MD/DO: Hospitalist
Patient with high blood pressure during this ER visit?: No
Condition: Fair
Discharge Problem:
Acute upper GI bleed, Syncope
Interventions
Interventions:
*Risk Screen - Suicide Last Done: 05/04/25 23:25
*General Assessment Last Done: 05/04/25 23:25
*Neglect/Abuse Screening Last Done: 05/04/25 23:25
*ED- Fall Risk Assessment Last Done: 05/04/25 23:25
*ED COVID-19 Vaccine History Last Done: 05/04/25 23:30
*ED Influenza Vaccine History Last Done: 05/04/25 23:25
*Nursing Disposition Last Done: 05/05/25 02:32
KT-Xitqlx-Rjvqntdnca Assessment Last Done: 05/04/25 23:38
ED- Cardiac Assessment Last Done: 05/04/25 23:38
ED- Pulmonary Assessment Last Done: 05/04/25 23:38
Discharge Date and Time
Discharge Date/Time: 05/05/25 02:35
[2025-05-04 23:40] VITALS: BP 113/64
[2025-05-04 23:52] LABS: INR 1.16; PT 15.1 Sec (11.4-14.6)
[2025-05-04 23:53] LABS: APTT 25.0 Sec (23.4-35.0)
[2025-05-05] VITALS (37 sets, daily range): BP systolic 93–149; BP diastolic 44–93; BMI 27.0
[2025-05-05 00:02] LABS: ALT (SGPT) 14 U/L (0-50); AST (SGOT) 18 U/L (17-59); Albumin 3.6 g/dl (3.5-5.0); Alkaline Phosphatase 44 U/L (38-126); Blood Urea Nitrogen 37 mg/dl (9-20); Calcium 8.6 mg/dl (8.4-10.2); Carbon Dioxide 28 mmol/L (22-30); Chloride 107 mmol/L (98-107); Estimated Creatinine Clearance 80 ml/min; Glucose 140 mg/dl (70-99); Potassium 4.8 mmol/L (3.5-5.1); Sodium 140 mmol/L (135-145); Total Protein 5.5 g/dl (6.3-8.2); eGFR > 60.00
[2025-05-05] MEDS: PROTONIX 100 IV ×3 (00:48→21:02)
[2025-05-05] MEDS: PROTONIX IV 40 MG IV (00:48)
[2025-05-05] MEDS: NSS 1000 IV ×3 (00:49→15:13)
--- NOTE | 2025-05-05 01:34 | HPS.HSE ---
Family Physician
-
Family Physician:
Chief Complaint
-
Hematemesis
History of Present Illness
Patient is a 69y M with PMH significant for hypertension and GERD who presents to ED complaining of nausea and vomiting blood. Patient notes that he underwent EGD on 04/22. He was tolerating some soup and ziggy delon following that procedure.
Tonight he had a sandwich for dinner and did not feel well afterwards. He went to bed early and noted that he felt lightheaded and nauseated. Patient essentially woke in the bed covered in blood - having passed out and had a large episode of
grossly bloody emesis. 911 was called and patient was brought to the ED for further evaluation.
In the ED, he was standing and urinating when he felt lightheaded and nearly passed out a second time. He was helped back into bed and now feels improved lying supine.
Medical History
Past Medical History
Past Medical History: Reports Other
Additional Past Medical History:
MARGE on CPAP
Hypertension
Hypogonadism
BPH
Insomnia
Atrial Fibrillation s/p Cardioversion
AAA s/p Repair
Past Surgical History: Reports Other
Additional Past Surgical History:
Left Wrist ORIF
Bilateral TKA
AAA Repair
Cervical Fusion
DCCV
Cholecystectomy
Social History
Tobacco: Non-smoker
Alcohol: None
Drug: None
Family History
Family History: Not pertinent
Allergies / Home Medications
Allergies reflects when Allergies were last updated in [facility].
Home Medications with original date entered in [facility]
Allergy/Medication List:
Allergies
Allergy/AdvReac Type Severity Reaction Status Date / Time
No Known Drug Allergies Allergy Unknown Verified 02/28/25 00:14
Home Medications
aspirin 81 mg chewable tablet 81 mg PO DAILY Blood Clot Prevention/Tx 02/28/25
metoprolol succinate 25 mg tablet,extended release 24 hr 25 mg PO HS Blood Pressure 02/28/25
pantoprazole 40 mg tablet,delayed release 40 mg PO DAILY Gastrointestinal Issue 02/28/25
rosuvastatin 10 mg tablet 10 mg PO DAILY cholesterol 02/28/25
testosterone 1 % (25 mg/2.5 gram) transdermal gel packet 1 packet topical DAILY Hormonal Agent 02/28/25
zolpidem 10 mg tablet 10 mg PO HS PRN Insomnia 02/28/25
multivitamin 1 gummy PO DAILY 05/02/25
carboxymethylcellulose sodium 0.5 % eye drops (Refresh Tears) 1 drp ophthalmic (eye) BID 05/05/25
Review of Systems
-
History Source: Patient
A 12 point ROS was completed and negative except as noted: Yes
Constitutional: Reports Fatigue; Denies Fever or Chills
Respiratory: Denies Cough or Trouble Breathing
Cardiac: Reports Syncope; Denies Chest Pain or Palpitations
Abdomen/GI: Reports Nausea, Vomiting and Other (Hematemesis); Denies Abdominal Pain or Diarrhea
: Denies Dysuria or Frequency
Neurological: Denies Dizzy or Headache
Psych: Denies Depression or Anxiety
Physical Exam
Vital Signs
Vital Signs
Temp Pulse Resp BP Pulse Ox
97.3 F 74 18 109/61 94
05/04/25 23:25 05/05/25 01:20 05/05/25 01:20 05/05/25 01:20 05/05/25 01:20
Physical Exam
General: Other (69y M in no acute distress.)
HEENT: Moist mucous membranes and PERRLA
Respiratory: Clear; No Wheezes, Rales or Rhonchi
Cardiac: S1/S2 and Regular Rhythm; No Murmur
GI: Soft, Non Distended, Normal Bowel Sounds and Other (Mild RUQ tenderness / well healed surgical scars.)
Musculoskeletal: No Clubbing, No Cyanosis and No Edema
Neuro: AO x 3
Laboratory Results
-
05/04/25 23:
05/04/25:
Laboratory Results
PT 15.1 Sec (11.4-14.6) H 05/04/25:
INR 1.16 05/04/25
APTT 25.0 Sec (23.4-35.0) 05/04/25:
Total Bilirubin 0.5 mg/dl (0.2-1.3) 05/04/25:
AST 18 U/L (17-59) 05/04/25:
ALT 14 U/L (0-50) 05/04/25
Alkaline Phosphatase 44 U/L (38-126) 05/04/25:
Impression/Plan
-
A/P: Patient is a 69y M with PMH significant for hypertension and GERD who presents to ED for evaluation after syncopal episode and large episode of grossly blood emesis at home this evening.
UGIB / Hematemesis
Acute Blood Loss Anemia secondary to the above
s/p EGD with subepithelial nodule resection (05/02/25)
- Admit to IMU for further evaluation and treatment.
- 1 unit PRBCs ordered in the ED given reported volume of hematemesis.
- Hgb = 11 down about 3g from known baseline.
- s/p subepithelial nodule resection during EGD on 05/02. Hemostatic clip placed at that time.
- Suspect bleeding from intervention site given presentation / timing.
- NPO, IVFs, supportive care.
- Strict bedrest to avoid syncope / fall.
- Follow serial H&H and transfuse additional units as needed.
- GI evaluation for additional recommendations and probable repeat EGD.
Benign Hypertension
- Stable. Continue metoprolol with holding parameters.
History of Atrial Fibrillation s/p DCCV
- No evidence of A-Fib following DCCV in 2018.
MARGE on CPAP
- Hold for now with nausea / emesis.
Hypogonadism
- Hold testosterone supplementation acutely.
DVT Prophylaxis: SCDs
Code Status: Full
--- NOTE | 2025-05-05 05:50 | PTCARENOTE ---
Received pt from ED with 1 unit PRBC transfusing through gravity tubing. Pt tolerating transfusion well. Pt able to sit at bed side to void in urinal. Educated pt on the importance of not getting up alone d/t syncopal episodes. Pt verbalizes
understanding. NPO per order with sips of clears. Call leonard within reach.
[2025-05-05 06:12] LABS: Hematocrit 31.4 % (39.0-52.0); Hemoglobin 10.3 g/dL (13.0-18.0)
[2025-05-05 06:24] LABS: Blood Urea Nitrogen 39 mg/dl (9-20); Calcium 8.1 mg/dl (8.4-10.2); Carbon Dioxide 23 mmol/L (22-30); Chloride 110 mmol/L (98-107); Estimated Creatinine Clearance 95 ml/min; Glucose 96 mg/dl (70-99); Potassium 4.6 mmol/L (3.5-5.1); Sodium 139 mmol/L (135-145); eGFR > 60.00
--- NOTE | 2025-05-05 06:28 | CON.GI ---
Consultation
-
Date/Time Consultation Requested: 05/05/25, 0243
Date/Time Consultation Performed: 05/05/25, 0631
Requesting Provider: Dr. Yehuda Wheeler
Performing Provider: Dr. Valentin Laboy
Reason for Consultation: Hematemesis, UGIB s/p EGD
Medical History
Chief Complaint / HPI
Chief Complaint: Hematemesis
History of Present Illness:
Mr. Connell is a 69 y.o male with a past medical history of HTN, GERD, A Fib (s/p DCCV, not on a/c) and recent EGD with EMR of gastric nodule (05/02/2025) who presented to the ED with nausea and hematemesis. GI has been consulted for further evaluation
and management.
Patient states he was in his usual state of health earlier last week and underwent a recent EGD/EUS on 05/02/[address] Damon as an outpatient for further evaluation of a gastric nodule. He was found to have a 12 mm nodule within the gastric
antrum and underwent snare mucosal resection with complete removal. There was no bleeding and underwent placement of 1 hemostatic clip after the procedure. The EUS and upper endoscopy was otherwise normal including a normal esophagus and normal
duodenum. Pathology demonstrated benign reactive gastropathy and prominent subepithelial nodular pancreatic acinar metaplasia, (-) dysplasia. Patient notes some vague upper abdominal discomfort after the procedure and some mild nausea. Over the
weekend he was feeling better and tolerated soup and ziggy oil following the procedure. However, he had a sandwich after dinner last evening and felt lightheaded and tried to go to bed. However, he woke after having large-volume hematemesis and
called 911 and was brought to the ER for further evaluation. He also notes having dark black stools as well. Denies any other significant NSAIDs or blood thinners. No other abdominal pain currently. In the ED, he felt lightheaded and had another
presyncopal episode while in the emergency room. He was found to be hemodynamically stable and labs revealed a hemoglobin 11 from previous 13.9 from 02/2025 with an elevated BUN 37 -> 39. He was started on IV PPI and transfused 1 unit PRBC. He was
ordered to have an additional 1 uPRBC given drop in Hgb from 11 -> 10.3. No further episodes while in the IMU and remains hemodynamically stable without compensatory tachycardia although on metoprolol.
Prior EGD/EUS 05/02/2025- Impression: An intramural (subepithelial) lesion was found in the antrum of the stomach. The lesion appeared to originate from within the submucosa (Layer 3). Tissue has not been obtained. Pancreatic parenchymal
abnormalities consisting of hyperechoic strands were noted in the pancreatic head. Pancreatic parenchymal abnormalities consisting of diffusely increased echogenicity were noted in the pancreatic body and pancreatic tail. Main pancreatic duct (MPD)
diameter was measured. Endosonographically, the MPD had a normal appearance. There was no sign of significant pathology in the common bile duct. There was no evidence of significant pathology in the left lobe of the liver. No specimens
collected.Normal esophagus. A single subepithelial papule (nodule) found in the stomach. Complete removal was accomplished. Clip was placed. Mucosal resection was performed. Resection was complete, and retrieval was complete. Normal duodenal bulb,
first portion of the duodenum and second portion of the duodenum.
Past Medical History
Past Medical History: Other (MARGE on CPAP Hypertension Hypogonadism BPH Insomnia Atrial Fibrillation s/p Cardioversion AAA s/p Repair)
Past Surgical History: Other (Left Wrist ORIF Bilateral TKA AAA Repair Cervical Fusion DCCV Cholecystectomy)
Social History
Tobacco: Non-Smoker
Alcohol: None
Drug: None
Family History
Family History: Reviewed & Not Pertinent
Allergies / Home Medications
Allergy/AdvReac Type Severity Reaction Status Date / Time
No Known Drug Allergies Allergy Unknown Verified 02/28/25 00:14
�Medication �Instructions �Recorded
aspirin 81 mg chewable tablet 81 mg PO DAILY Blood Clot 02/28/25
Prevention/Tx
metoprolol succinate 25 mg 25 mg PO HS Blood Pressure 02/28/25
tablet,extended release 24 hr
pantoprazole 40 mg tablet,delayed 40 mg PO DAILY Gastrointestinal 02/28/25
release Issue
rosuvastatin 10 mg tablet 10 mg PO DAILY cholesterol 02/28/25
testosterone 1 % (25 mg/2.5 gram) 1 packet topical DAILY Hormonal 02/28/25
transdermal gel packet Agent
zolpidem 10 mg tablet 10 mg PO HS PRN Insomnia 02/28/25
multivitamin 1 gummy PO DAILY 05/02/25
carboxymethylcellulose sodium 0.5 1 drp ophthalmic (eye) BID 05/05/25
% eye drops (Refresh Tears)
Review of Systems
-
All other systems: A 12 pt ROS was Negative except as stated above in HPI
Vital Signs
Temp Pulse Resp BP Pulse Ox
98.6 F 67 14 112/74 98
05/05/25 04:17 05/05/25 05:45 05/05/25 05:45 05/05/25 04:17 05/05/25 05:45
Physical Exam
Exam
General: Well Developed, No Apparent Distress and Comfortable
HEENT: Normocephalic, Anicteric and Moist Mucous Membranes
Respiratory: Other (Normal WOB on room air)
Cardiac: Other (RR on tele)
GI: Soft, Non Tender and Non Distended
Skin: Warm
Neuro: AO x 3
Hematologic/Lymphatic: No Lymphadenopathy
Psych: Calm
Results
WBC 12.6 10^3/uL (4.8-10.8) H 05/04/25 23:32
Hgb 10.3 g/dL (13.0-18.0) L 05/05/25 06:05
Hct 31.4 % (39.0-52.0) L 05/05/25 06:05
MCV 98.2 fL (80.0-94.0) H 05/04/25 23:32
Plt Count 226 10^3/uL (130-400) 05/04/25 23:32
Absolute Neuts (auto) 9.7 10^3/uL (1.4-6.5) H 05/04/25 23:32
PT 15.1 Sec (11.4-14.6) H 05/04/25 23:32
INR 1.16 05/04/25 23:32
APTT 25.0 Sec (23.4-35.0) 05/04/25 23:32
Sodium 139 mmol/L (135-145) 05/05/25 06:05
Potassium 4.6 mmol/L (3.5-5.1) 05/05/25 06:05
Chloride 110 mmol/L (98-107) H 05/05/25 06:05
Carbon Dioxide 23 mmol/L (22-30) 05/05/25 06:05
BUN 39 mg/dl (9-20) H 05/05/25 06:05
Creatinine 0.8 mg/dL (0.7-1.3) 05/05/25 06:05
Calcium 8.1 mg/dl (8.4-10.2) L 05/05/25 06:05
Total Bilirubin 0.5 mg/dl (0.2-1.3) 05/04/25 23:32
AST 18 U/L (17-59) 05/04/25 23:32
ALT 14 U/L (0-50) 05/04/25 23:32
Alkaline Phosphatase 44 U/L (38-126) 05/04/25 23:32
Diagnostic Image Results:
Prior GI Procedures:
EGD:
Colonoscopy:
Assessment / Plan
-
Mr. Connell is a 69 y.o male with a past medical history of HTN, GERD, A Fib (s/p DCCV, not on a/c) and recent EGD with EMR of gastric nodule (05/02/2025) who presented to the ED with nausea and hematemesis. GI has been consulted for further evaluation
and management.
#UGIB #Hematemesis
#Post-polypectomy Bleed
#S/p recent EMR of Gastric Nodule
#Acute Blood Loss anemia
#Syncopal Episode
#A Fib (s/p DCCV, not on a/c)
Impression: Patient presenting with large volume hematemesis after recent EGD 05/02/25 with an EMR of a gastric nodule within the gastric antrum concerning for post-polypectomy upper GI bleed. Currently, he remains HD-stable and without any further
episodes of hematemesis since admission however would still benefit from an urgent EGD for further evaluation and potential therapy given his suspected post-polypectomy UGIB.
Recommendations:
- Keep strict NPO
- Ensure two large bore IVs (18 gauge)
- IV PPI gtt x 72 hrs
- Trend Hgb with serial CBC, ordered additional 2 unit of PRBC given drop in H/h
- Ordered stat IV Erythromycin 250 mg to be given prior to EGD to clear blood / enhance visualization prior to EGD
- Plan for EGD this AM for further evaluation and potential treatment. See same day EGD report for additional findings and recommendations
- Discussed benefits and risks again of repeat EGD at bedside, patient amenable in proceeding with EGD today
- Avoidance of all antihypertensives, anticoagulants and antiplatelets
- Rest of ongoing care as per primary team
Discussed with nursing and primary internal medicine team. GI will continue to follow, please contact with any questions or concerns.
Data Reviewed
-
Old Records: Reviewed
-
-
Thank you for consultation and allowing me to participate in the patient's care. Please call the implementation services analyst GI physician during the after hours with any questions or concerns.
[2025-05-05] MEDS: ERYTHROCIN 105 MG IV (07:40)
--- NOTE | 2025-05-05 08:45 | W.PN.UPDATE ---
Update Note
Progress Note Update
Seen and admitted by Dr. Wheeler this morning.
Admitted for hematemesis status post recent gastric polyp resection.
Received 1 unit of blood so far.
No further hematemesis this morning. Blood pressure 96/52. Does not complain much of pain from abdomen. Abdomen is soft.
H&H 10 point. Await repeat.
Discussed with GI-going for endoscopy this morning. Continue with PPI drip.
--- NOTE | 2025-05-05 09:19 | PTCARENOTE ---
Assumed care of patient at beginning of this shift from previous RN; cannot verify accuracy of vital signs prior to 0700. NSS infusing at 125ml/hr, Protonix 8mg/hr and Erythromycin infusion. PRBC currently infusing. Patient assisted to commode x1
assist; patient had large black/brown, soft/tarry/loose stool mixed with urine. Denied dizziness when getting OOB. Instructed patient not to get up without staff assist; bed alarm initiated for safety. Current BP 113/69. See worklist for full
assessment and vital signs.
--- NOTE | 2025-05-05 10:18 | PTCARENOTE ---
Patient to GI lab via stretcher, accompanied by RN Desi d/yessenia PRBC infusing. Report given; GI RN stated she would contact blood bank for pink slip to complete transfusion.
--- NOTE | 2025-05-05 12:13 | PTCARENOTE ---
Patient returned from GI with protonix drip infusing. Blood transfusion completed in GI lab using pink transfusion form; documentation updated in [facility]. Patient able to ambulate in room from stretcher to bed without difficulty; denies dizziness.
--- NOTE | 2025-05-05 15:08 | PTCARENOTE ---
Addendum entered by Ronda Gonzalez RN 05/05/25 16:41:
Lab unable to locate specimen; repeat sent and received.
Original Note:
H&H sent to lab but not resulted. Confirmed with hematology that they see the 1400 specimen was collected however they do not show it as received. He stated that there is a backlog in the tube system and [employer] is working on purging the tube system
to see if specimen is stuck. Will update in 1/2hr.
[2025-05-05 16:37] LABS: Hematocrit 31.7 % (39.0-52.0); Hemoglobin 10.3 g/dL (13.0-18.0)
[2025-05-06] VITALS (15 sets, daily range): BP systolic 99–140; BP diastolic 56–73; BMI 27.0
[2025-05-06] MEDS: NSS 1000 IV ×3 (00:07→17:54)
[2025-05-06 00:23] LABS: Hematocrit 30.3 % (39.0-52.0); Hemoglobin 10.3 g/dL (13.0-18.0)
--- NOTE | 2025-05-06 06:34 | W.PN.GI.CBS2 ---
Today's Communication / Plan
-
S/p recent EGD on 05/05 s/p epi and clips of gastric ulcer with non-bleeding visible vessel. Continue IV PPI gtt and trend serial H/h. No signs to suggest recurrent GI bleeding. Rest of care as outlined below.
Assessment / Plan
-
Mr. Connell is a 69 y.o male with a past medical history of HTN, GERD, A Fib (s/p DCCV, not on a/c) and recent EGD with EMR of gastric nodule (05/02/2025) who presented to the ED with nausea and hematemesis. GI has been consulted for further evaluation
and management.
#UGIB #Hematemesis
#Post-polypectomy Bleed
#Pre-pyloric Gastric Ulcer w/ NBVV (s/p epi/clips)
#S/p recent EMR of Gastric Nodule
#Acute Blood Loss anemia
#Syncopal Episode
#A Fib (s/p DCCV, not on a/c)
Impression: Patient presenting with large volume hematemesis after recent EGD 05/02/25 with an EMR of a gastric nodule within the gastric antrum concerning for post-polypectomy upper GI bleed. S/p EGD 05/05/25: Non-bleeding gastric ulcer with a NBVV
in the prepyloric region, s/p epi and clipped for hemostasis, old blood in stomach and duodenum, otherwise normal. Currently, he remains HD-stable without any signs to suggest recurrent upper GI bleeding since his EGD and stable H/h. S/p 2 uPRBCs
since admission.
Recommendations:
- Continue CLD today, if H/h remains stable consider advancing diet to regular diet this evening
- IV PPI gtt x 72 hrs
- Trend Hgb with CBC q 12 hrs, transfuse as needed
- No plans for a repeat EGD as without any signs to suggest recurrent GI bleeding
- Still expect melena over next 24 - 48 hrs
- Avoidance of all antihypertensives, anticoagulants and antiplatelets
- Rest of ongoing care as per primary team
GI will continue to follow, please contact with any questions or concerns.
Subjective
Subjective
Date of Service: May 06, 2025
- S/p EGD 05/05/25: Non-bleeding gastric ulcer with a NBVV in the prepyloric region, s/p epi and clipped for hemostasis, old blood in stomach and duodenum, otherwise normal
- No further signs to suggest recurrent bleeding and H/h remains stable
- Otherwise, no acute events overnight
Feeling well and resting comfortably in bed. Denies any recent bowel movements since his EGD. No melena or maroon colored stools. No other nausea/vomiting or hematemesis. Tolerating CLD without difficulty.
Objective
Data Reviewed
Laboratory Data:
Laboratory Results
05/06/25 00:15
05/05/25 06:05
Laboratory Results
PT 15.1 Sec (11.4-14.6) H 05/04/25 23:32
INR 1.16 05/04/25 23:32
APTT 25.0 Sec (23.4-35.0) 05/04/25 23:32
Total Bilirubin 0.5 mg/dl (0.2-1.3) 05/04/25 23:32
AST 18 U/L (17-59) 05/04/25 23:32
ALT 14 U/L (0-50) 05/04/25 23:32
Alkaline Phosphatase 44 U/L (38-126) 05/04/25 23:32
Vital Signs and I&O:
Vital Signs
Temp Pulse Resp BP Pulse Ox
97.6 F 44 9 101/66 95
05/06/25 02:36 05/06/25 03:53 05/06/25 03:47 05/06/25 03:47 05/06/25 03:47
I&O
05/04/25 05/05/25 05/06/25
06:59 06:59 06:59
Intake Total 250 / 250 980 / 980
Output Total 2400 / 2400
Balance 250 / 250 -1420 / -1420
Physical Exam
Physical Exam
HEENT: Anicteric and Moist mucous membranes
Cardiology: Other (RR on tele)
Pulmonary: Other (Normal WOB on room air)
GI: Soft, Non Distended and Non Tender
Extremities: No Edema and Warm
Neuro: Non Focal
[2025-05-06] MEDS: PROTONIX 100 IV ×2 (06:41→17:54)
--- NOTE | 2025-05-06 08:41 | W.PN.HOSP.TC ---
Today's Communication/Plan
-
PPI. Advance diet.
Assessment / Plan
Assessment / Plan
Physical exam:
General: Well Developed, Well Nourished and No Apparent Distress
HEENT: Normocephalic, Atraumatic and Moist Mucous Membranes
Respiratory: Clear to Auscultation; Negative Wheezes, Rales or Rhonchi
Cardiac: Regular Rhythm and S1/S2
GI: Soft, Nontender and Nondistended
Musculoskeletal: No Clubbing, No Cyanosis and No Edema
Neuro: Awake, Alert and Oriented, no neurological deficits
Psych: Calm
EGD:
- Normal esophagus.
- Small amount of old blood in the gastric body and in the gastric
antrum.
- Non-bleeding gastric ulcer with a nonbleeding visible vessel
(Melquiades Class IIa) found in the pre-pyloric region. Injected with
epi for drug delivery and hemostasis. Clips were placed to
approximate the ulcer bed with one successfully placed clip over the
visible vessel. Clip patient account specialist: [employer]. No oozing or
bleeding was visualized during the procedure or after the
intervention. Otherwise, normal stomach on direct and retroflexion
views.
- Old blood in the second portion of the duodenum.
- The examination was otherwise normal.
- No specimens collected.
A/P:
Acute GI bleed:
Status post endoscopy and results as above
Start clear liquid diet and advance as tolerated
Continue PPI drip
Continue gentle IV fluid hydration
Continue monitor hemoglobin
GI consult and follow-up appreciated-discussed with GI today via [place] text.
PT OT eval
Acute blood loss anemia:
Continue to monitor hemoglobin
Latest hemoglobin 10.4
Presyncope:
Related to GI bleed
Gastric nodule:
Had recent EGD/EUS on 05/02 with complete removal of gastric nodule status post clip.
Paroxysmal A-fib:
Not on anticoagulation as outpatient
On oral beta-viv as outpatient. Will order today or tomorrow with holding parameters.
Cardiac monitoring
Hypotension:
Improving
Hypertension:
Soft blood pressure readings
Will restart antihypertensive with holding parameters
Hyperlipidemia:
Will restart statin
MARGE:
Restart CPAP
Hypogonadism:
Restart hormonal replacement
DVT prophylaxis:
SCDs
CODE STATUS:
Full code
Total time spent on today's encounter was 52 minutes which included time spent in counseling the patient/family regarding diagnosis and treatment plan as listed above, goals of care, and symptom management. Case was discussed with nursing staff,
specialists, and care coordinators/case management. All labs and imaging personally reviewed by me. Remainder the time spent in detailed review of previous records, lab data, imaging, and other medical provider documentation.
Anticipated Discharge: 24 - 48 hours
Subjective/Interval History
-
Date of Service: May 06, 2025
Patient denies abdominal pain nausea or vomiting. Feels better overall.
Objective Data
-
Labs:
Laboratory Results
05/06/25 05/06/25
00:15 08:05
WBC Pending
Hgb 10.3 L Pending
Hct 30.3 L Pending
Plt Count Pending
Sodium Pending
Potassium Pending
Chloride Pending
Carbon Dioxide Pending
BUN Pending
Creatinine Pending
Glucose Pending
Calcium Pending
Vital Signs:
Vital Signs
Temp Pulse Resp BP Pulse Ox
97.7 F 44 9 101/66 95
05/06/25 07:25 05/06/25 03:53 05/06/25 03:47 05/06/25 03:47 05/06/25 03:47
I&O
11/16/25 11/17/25 11/18/25
06:59 06:59 06:59
Intake Total 250 / 250 980 / 980
Output Total 2400 / 2400
Balance 250 / 250 -1420 / -1420
[2025-05-06 09:34] LABS: Hematocrit 31.5 % (39.0-52.0); Hemoglobin 10.4 g/dL (13.0-18.0); Mean Corp Hgb Conc. 33.0 g/dL (33.0-37.0); Mean Corpuscular Volume 98.1 fL (80.0-94.0); Red Cell Dist. Width 15.9 % (11.5-14.5)
[2025-05-06 10:13] LABS: Blood Urea Nitrogen 15 mg/dl (9-20); Calcium 8.2 mg/dl (8.4-10.2); Carbon Dioxide 27 mmol/L (22-30); Chloride 112 mmol/L (98-107); Estimated Creatinine Clearance 95 ml/min; Glucose 96 mg/dl (70-99); Potassium 4.4 mmol/L (3.5-5.1); Sodium 139 mmol/L (135-145); eGFR > 60.00
[2025-05-06 11:25] LABS: Platelet Count 155 10^3/uL (130-400)
--- NOTE | 2025-05-06 12:50 | CM ---
I.A: Completed By DINORAH Dhaliwal
Patient lives with his in a 2 [address], 2 CODI, 13 [address]. DME: Non, but had VN via VN 2 months ago, No Inpatient Rehab.
PCP: Dr. Brian Pastor ([facility])
Pharmacy: [facility] on [address]
Patient has transportation home when ready. PLAN: Anticipate Home No Needs vs. VN
[2025-05-06] MEDS: CRESTOR 10 MG PO (13:18)
--- NOTE | 2025-05-06 18:07 | PTCARENOTE ---
Rec'd pt this AM. hgb stable, no BM or bleeding. OOB to chair with no assist required. Tolerating advanced diet throughout the shift.
[2025-05-07] VITALS: BP 125/81
[2025-05-07 02:00] VITALS: BP 105/64
--- NOTE | 2025-05-07 02:36 | PTCARENOTE ---
Assumed care for patient overnight. AAOx3, pleasant. NSS cont at 85ml/hr. Protonix gtt cont at 8mg/hr. Pt denies any pain or discomfort at this time. NSR-SB on the monitor w/ frequent PVC's. VSS. Assessment and care as charted, see worklist. Call
leonard is within reach.
[2025-05-07] MEDS: PROTONIX 100 IV (02:44)
[2025-05-07 04:00] VITALS: BP 98/68
[2025-05-07] MEDS: NSS 1000 IV (05:11)
[2025-05-07 05:47] LABS: Hematocrit 30.9 % (39.0-52.0); Hemoglobin 10.2 g/dL (13.0-18.0); Mean Corp Hgb Conc. 33.0 g/dL (33.0-37.0); Mean Corpuscular Volume 97.8 fL (80.0-94.0); Platelet Count 154 10^3/uL (130-400); Red Cell Dist. Width 15.2 % (11.5-14.5)
[2025-05-07 06:00] VITALS: BP 130/54
[2025-05-07 06:03] LABS: Blood Urea Nitrogen 11 mg/dl (9-20); Calcium 8.2 mg/dl (8.4-10.2); Carbon Dioxide 27 mmol/L (22-30); Chloride 112 mmol/L (98-107); Estimated Creatinine Clearance 95 ml/min; Glucose 98 mg/dl (70-99); Potassium 4.0 mmol/L (3.5-5.1); Sodium 139 mmol/L (135-145); eGFR > 60.00
--- NOTE | 2025-05-07 06:21 | W.PN.GI.CBS2 ---
Today's Communication / Plan
-
No signs to suggest recurrent bleeding since EGD on 05/05. H/h remains stable with normal BUN. Regular diet as tolerated and transition to oral PPI at discharge. Should f/u in GI office as well after hospitalization along with strict avoidance of
all NSAIDs. See rest of care as outlined below. GI will sign-off, please re-contact with any questions or concerns.
Assessment / Plan
-
Mr. Connell is a 69 y.o male with a past medical history of HTN, GERD, A Fib (s/p DCCV, not on a/c) and recent EGD with EMR of gastric nodule (05/02/2025) who presented to the ED with nausea and hematemesis. GI has been consulted for further evaluation
and management.
#UGIB #Hematemesis
#Post-polypectomy Bleed
#Pre-pyloric Gastric Ulcer w/ NBVV (s/p epi/clips)
#S/p recent EMR of Gastric Nodule
#Acute Blood Loss anemia
#Syncopal Episode
#A Fib (s/p DCCV, not on a/c)
Impression: Patient presenting with large volume hematemesis after recent EGD 05/02/25 with an EMR of a gastric nodule within the gastric antrum concerning for post-polypectomy upper GI bleed. S/p EGD 05/05/25: Non-bleeding gastric ulcer with a NBVV
in the prepyloric region, s/p epi and clipped for hemostasis, old blood in stomach and duodenum, otherwise normal. Currently, he remains HD-stable without any signs to suggest recurrent upper GI bleeding since his EGD and stable H/h. S/p 2 uPRBCs
since admission with stable Hgb 10s and normalization of previously elevated BUN without signs to suggest recurrent GI bleeding.
Recommendations:
- Regular diet as tolerated
- IV PPI gtt x 72 hrs, can transition to oral PPI at discharge
- Recommend Pantoprazole 40 mg BiD for 8 weeks for ulcer healing
- Should have a repeat CBC in 1-2 weeks as outpatient
- Discussed and updated his primary GI (Dr. Burton) as well and recommend outpatient f/u in 6-8 weeks
- Strict avoidance of all NSAIDs
- Discussed that melena to be expected over next 48 hrs
- Okay to resume ASA if needed from GI standpoint
- Rest of ongoing care as per primary team
Discussed with primary internal medicine team this AM. GI will sign-off, please re-contact with any questions or concerns.
Subjective
Subjective
Date of Service: May 07, 2025
- Hgb remains stable with Hgb 10s, normalization of BUN 39 -> 15 -> 11
- Episode of melena overnight, otherwise no acute events
Feeling well and resting comfortably, had one large dark black bowel movement but denies any maroon colored stools or bloody BMs. Discussed melena to be expected over next 1-2 days. Otherwise, continues to deny any abdominal pain or nausea/vomiting.
Objective
Data Reviewed
Laboratory Data:
Laboratory Results
05/07/25 05:22
05/07/25 05:22
Laboratory Results
PT 15.1 Sec (11.4-14.6) H 05/04/25 23:32
INR 1.16 05/04/25 23:32
APTT 25.0 Sec (23.4-35.0) 05/04/25 23:32
Total Bilirubin 0.5 mg/dl (0.2-1.3) 05/04/25 23:32
AST 18 U/L (17-59) 05/04/25 23:32
ALT 14 U/L (0-50) 05/04/25 23:32
Alkaline Phosphatase 44 U/L (38-126) 05/04/25 23:32
Vital Signs and I&O:
Vital Signs
Temp Pulse Resp BP Pulse Ox
98.3 F 51 14 98/68 97
05/07/25 03:00 05/07/25 04:00 05/07/25 04:00 05/07/25 04:00 05/07/25 04:00
I&O
05/05/25 05/06/25 05/07/25
06:59 06:59 06:59
Intake Total 250 / 250 980 / 980
Output Total 2400 / 2400 2425 / 2425
Balance 250 / 250 -1420 / -1420 -2425 / -2425
Physical Exam
Physical Exam
HEENT: Anicteric and Moist mucous membranes
Cardiology: Other (RR on tele)
Pulmonary: Other (Normal WOB on room air)
GI: Soft, Non Distended and Non Tender
Extremities: Warm
Neuro: Non Focal
[2025-05-07] MEDS: CRESTOR 10 MG PO (07:39)
[2025-05-07 08:00] VITALS: BP 123/78
--- NOTE | 2025-05-07 08:52 | W.PN.HOSP.TC ---
Today's Communication/Plan
-
Discharge planning
Assessment / Plan
Assessment / Plan
Physical exam:
General: Well Developed, Well Nourished and No Apparent Distress
HEENT: Normocephalic, Atraumatic and Moist Mucous Membranes
Respiratory: Clear to Auscultation; Negative Wheezes, Rales or Rhonchi
Cardiac: Regular Rhythm and S1/S2
GI: Soft, Nontender and Nondistended
Musculoskeletal: No Clubbing, No Cyanosis and No Edema
Neuro: Awake, Alert and Oriented, no neurological deficits
Psych: Calm
EGD:
- Normal esophagus.
- Small amount of old blood in the gastric body and in the gastric
antrum.
- Non-bleeding gastric ulcer with a nonbleeding visible vessel
(Melquiades Class IIa) found in the pre-pyloric region. Injected with
epi for drug delivery and hemostasis. Clips were placed to
approximate the ulcer bed with one successfully placed clip over the
visible vessel. Clip patents examiner: [employer]. No oozing or
bleeding was visualized during the procedure or after the
intervention. Otherwise, normal stomach on direct and retroflexion
views.
- Old blood in the second portion of the duodenum.
- The examination was otherwise normal.
- No specimens collected.
A/P:
Acute GI bleed:
Status post endoscopy and results as above
On regular diet
Change PPI drip to twice daily Protonix
Stop IV fluid
Discussed with GI and cleared for discharge
Acute blood loss anemia:
Continue to monitor hemoglobin as outpatient
Latest hemoglobin 10.2
Presyncope:
Related to GI bleed
Gastric nodule:
Had recent EGD/EUS on 05/02 with complete removal of gastric nodule status post clip.
Paroxysmal A-fib:
Not on anticoagulation as outpatient
On oral beta-viv as outpatient. Will order today at a lower dose.
Cardiac monitoring
Hypotension:
Resolved
Hypertension:
Soft blood pressure readings
Will restart antihypertensive with holding parameters
Hyperlipidemia:
Will restart statin
MARGE:
Restart CPAP
Hypogonadism:
Restart hormonal replacement as outpatient
DVT prophylaxis:
SCDs
CODE STATUS:
Full code
Anticipated Discharge: Today
Subjective/Interval History
-
Date of Service: May 07, 2025
Patient doing well overall
Objective Data
-
Labs:
Laboratory Results
05/07/25
05:22
WBC 5.4
Hgb 10.2 L
Hct 30.9 L
Plt Count 154
Sodium 139
Potassium 4.0
Chloride 112 H
Carbon Dioxide 27
BUN 11
Creatinine 0.8
Glucose 98
Calcium 8.2 L
Vital Signs:
Vital Signs
Temp Pulse Resp BP Pulse Ox
98.3 F 49 16 130/54 97
05/07/25 03:00 05/07/25 06:00 05/07/25 06:00 05/07/25 06:00 05/07/25 06:00
I&O
05/06/25 05/07/25 05/08/25
06:59 06:59 06:59
Intake Total 980 / 980 1140 / 1140
Output Total 2400 / 2400 2425 / 2425
Balance -1420 / -1420 -1285 / -1285
[2025-05-07 10:00] VITALS: BP 109/74
--- NOTE | 2025-05-07 10:59 | W.DCSUMMARY ---
Discharge Summary
Discharge Data
Date of Admission: 05/05/25
Date of Discharge: 05/07/25
Total time spent discharging patient (in min): 35
-
Pending Results: No
Hospital Course
Patient is 69 years old male with history of A-fib, hypertension, hypogonadism, MARGE, PVD, gastric nodule status post EGD post polypectomy and came to the hospital with large-volume hematemesis. GI consulted. He was placed on PPI and GI did an EGD.
EGD showed evidence of postpolypectomy bleed and nonbleeding gastric ulcer in the prepyloric region status post epi and clipped for hemostasis and old blood in the stomach and duodenum. Patient was kept on PPI drip and hemoglobin normalized and
remained stable. His hemoglobin upon discharge 10.2. He has remained hemodynamically stable. GI cleared him for discharge today. He could potentially restart aspirin but is not very clear that he does need aspirin so this has been discontinued
upon discharge and asked him to discuss with PCP and or cardiology as outpatient the need to restart. Patient also was relatively hypotensive and bradycardic so beta-blockers was held and it was restarted half the doses upon discharge. Otherwise,
patient tolerating diet and ambulating well and back to his baseline. He will be discharged in stable condition today.
Discharge duration: 35 minutes
Discharge Plan
-
Patient Disposition: Home (Routine Discharge)
Discharge Diagnosis/Procedures: Acute gastrointestinal bleed. Acute blood loss anemia. Postpolypectomy bleed. Prepyloric gastric ulcer. Syncope. Paroxysmal atrial fibrillation.
Diet: Low Cholesterol
Activity: As tolerated
Blood Work: Please PCP to order CBC, BMP within 1 to 2 weeks
Referrals:
Brian Ashraf MD [Family Provider, Family Practice] - in less than 1 week
Lara Burton DO [Active, Gastroenterology]
Referral Note: Call to make a hospital follow-up appointment in 6 to 8 weeks
Prescriptions:
New
pantoprazole [Protonix] 40 mg tablet,delayed release (DR/EC)
40 mg PO BID Qty: 60 0RF
metoprolol succinate 25 mg capsule,sprinkle,ER 24hr
12.5 mg PO DAILY Qty: 30 0RF
Continued
zolpidem 10 mg tablet
10 mg PO HS PRN (Reason: Insomnia)
testosterone 1 % (25 mg/2.5gram) gel in packet
1 packet topical DAILY
rosuvastatin 10 mg tablet
10 mg PO DAILY
multivitamin
1 gummy PO DAILY
carboxymethylcellulose sodium [Refresh Tears] 0.5 % Drops
1 drp OPHTHALMIC (EYE) BID
Discontinued
pantoprazole 40 mg tablet,delayed release (DR/EC)
40 mg PO DAILY
aspirin 81 mg Tablet,Chewable
81 mg PO DAILY
metoprolol succinate 25 mg tablet extended release 24 hr
25 mg PO HS
Discharge Orders:
Discharge Patient (As Directed); Ordered 05/07/25
Ordered By: Benedicto Alexander
Discharge Date and Time
Discharge Date/Time: 05/07/25 11:52
Print Language: SINHALA
[2025-05-07] MEDS: PROTONIX IV 40 MG IV (11:04)
[2025-05-07] MEDS: NSS (PRESERVATIVE FREE) 10 ML IV (11:04)
[2025-05-07] MEDS: FLUZONE HIGH-DOSE 2025-26 0.5 ML IM (11:20)
--- NOTE | 2025-05-07 11:40 | PTCARENOTE ---
Assumed care of patient at beginning of this shift from previous RN with IVF and protonix drip infusing. Dr Alexander rounded on patient and instructed to d/c IVF; protonix changed to IV push. Confirmed with pharmacist that IV push protonix may be given
as soon as IV infusion d/c'd. Patient ordered for discharge. Flu vaccine given as ordered. Reviewed with Dr Alexander via TT that patient continues with frequent PVCs/trigeminy. Confirmed with Dr Alexander that patient may start lopressor today at home.
in room when d/c instructions and med list reviewed; both denied questions. See worklist for full assessment and vital signs.
--- NOTE | 2025-05-07 12:16 | CM ---
F/U: Patient DC with no needs. PLAN: Home No Needs.
== END 2025-05-07 11:52 | disposition home or self-care (01) | DRG 919 ==
LOC: IMU 01:42
PROVIDERS: Internal Medicine; ADMITTING PHYSICIAN Hospitalist; ATTENDING PHYSICIAN Hospitalist; CONSULT PHYSICIAN Student in an Organized Health Care Education/Training Program; EMERGENCY PHYSICIAN Emergency Medicine; FAMILY PHYSICIAN Family Medicine
PROC: 0W3P8ZZ Control Bleeding in Gastrointestinal Tract, Via Natural or Artificial Opening Endoscopic (ICD-10-PCS; 2025-05-05)
PROC: 3E0G8GC Introduction of Other Therapeutic Substance into Upper GI, Via Natural or Artificial Opening Endoscopic (ICD-10-PCS; 2025-05-05)
PROC: 30233N1 Transfusion of Nonautologous Red Blood Cells into Peripheral Vein, Percutaneous Approach (ICD-10-PCS; 2025-05-05)
DX: K91.840 Postprocedural hemorrhage of a digestive system organ or structure following a digestive system procedure (principal); K25.4 Chronic or unspecified gastric ulcer with hemorrhage; D62 Acute posthemorrhagic anemia; K21.9 Gastro-esophageal reflux disease without esophagitis; I10 Essential (primary) hypertension; E29.1 Testicular hypofunction; N40.0 Benign prostatic hyperplasia without lower urinary tract symptoms; G47.00 Insomnia, unspecified; Z86.79 Personal history of other diseases of the circulatory system; G47.33 Obstructive sleep apnea (adult) (pediatric); Z96.653 Presence of artificial knee joint, bilateral; Z79.82 Long term (current) use of aspirin; Z79.899 Other long term (current) drug therapy; I48.0 Paroxysmal atrial fibrillation; Y83.8 Other surgical procedures as the cause of abnormal reaction of the patient, or of later complication, without mention of misadventure at the time of the procedure; Z90.49 Acquired absence of other specified parts of digestive tract
CPT/HCPCS: 36430; 80048; 80053; 85014; 85018; 85025; 85027; 85610; 85730; 86850; 86900; 86901; 86920; 90662; 96365; 96366; 97162; 99291; G0008; J1364; P9016

== ENCOUNTER → 2025-05-20 06:55 | Outpatient (REF) | payer OTHER, SELFPAY ==
[2025-05-20 08:21] LABS: Hematocrit 37.5 % (39.0-52.0)
[2025-05-20 09:00] LABS: ALT (SGPT) 15 U/L (0-50); AST (SGOT) 21 U/L (17-59); Albumin 4.1 g/dl (3.5-5.0); Alkaline Phosphatase 58 U/L (38-126); Blood Urea Nitrogen 7 mg/dl (9-20); Calcium 9.4 mg/dl (8.4-10.2); Carbon Dioxide 30 mmol/L (22-30); Chloride 105 mmol/L (98-107); Glucose 85 mg/dl (70-99); Potassium 4.6 mmol/L (3.5-5.1); Sodium 139 mmol/L (135-145); Total Protein 6.5 g/dl (6.3-8.2); eGFR > 60.00
== END ==
LOC: REG 06:55
PROVIDERS: ATTENDING PHYSICIAN Specialist; FAMILY PHYSICIAN Family Medicine
DX: E29.1 Testicular hypofunction (principal); N52.9 Male erectile dysfunction, unspecified; Z12.5 Encounter for screening for malignant neoplasm of prostate
CPT/HCPCS: 36415; 80053; 84403; 85014

== ENCOUNTER → 2025-05-23 16:02 | Outpatient (REF) | payer OTHER, SELFPAY | LOC: RAD 16:02 | PROVIDERS: ATTENDING PHYSICIAN Specialist; FAMILY PHYSICIAN Family Medicine | DX: I82.462 Acute embolism and thrombosis of left calf muscular vein (principal); Z96.652 Presence of left artificial knee joint | CPT/HCPCS: 93971 ==